=== PATIENT | male | born 1945 | race Two or more races ===

== ENCOUNTER 2018-09-06 04:23 | Inpatient (IN) | payer MEDICARE, OTHER ==
[2018-09-06] VITALS (53 sets, daily range): BP systolic 71–159; BP diastolic 35–106
[~2018-09-06] VITALS: Ht 175.3 cm; Wt 78.9 kg
[2018-09-06] MEDS ORDERED: NALOXONE HCL 0.4 MG/ML AMPUL IV ONE (04:30)
[2018-09-06] MEDS ORDERED: NALOXONE PREFILLED SYRINGE 2 MG/2 ML SYRINGE ONE ×2 (04:30→04:35)
--- NOTE | 2018-09-06 04:33 | NUR ---
PT BIBRA. IN UNRESPONSIVE STATUS. SAT 70-75 ON RA. MONITOR APPLIED. MD AT BEDSIDE.
--- NOTE | 2018-09-06 04:39 | NUR ---
PT PREPPED FOR INTUBATION.
[2018-09-06 04:43] LABS: BASOPHILS % (AUTO) 0.3 % (0.0-2.0); EOSINOPHILS % (AUTO) 0.2 % (0.0-6.0); HEMATOCRIT 44 % (39-51); LYMPHOCYTES # (AUTO) 1.1 /CMM (0.8-4.8); MEAN CORPUSCULAR HGB CONC 32 g/dl (31.0-36.0); MEAN CORPUSCULAR VOLUME 101 fL (80-96); MONOCYTES # (AUTO) 1.3 /CMM (0.1-1.30); MONOCYTES % (AUTO) 8.4 % (2.0-12.0); NEUTROPHILS # (AUTO) 13.4 /CMM (1.8-8.9); NEUTROPHILS % (AUTO) 84.1 % (43.0-81.0); PLATELET COUNT (AUTO) 221 /CMM (150-450); RED BLOOD CELL COUNT(AUTO) 4.37 MIL/uL (4.5-6.0); WHITE BLOOD COUNT (AUTO) 15.9 K/uL (4.3-11.0)
--- NOTE | 2018-09-06 04:54 | NUR ---
Note jenny in EDM - 09/06/18 at 0456 by PORFIRIO PT BIBRA. IN UNRESPONSIVE STATUS. SAT 70-75 ON RA. MONITOR APPLIED. MD AT BEDSIDE.
--- NOTE | 2018-09-06 04:55 | NUR ---
RT CALLED TO PT BEDSIDE STAT FOR INTUBATION. RT ARRIVED AT PT BEDSIDE WITH PT ON N/C AND NRB ON 15LPM. AMBU BAG MASK AT BEDSIDE. PT INTUBATED WITH 8.0ETT@25CM VIA GLIDESCOPE. POSITIVE COLOR CHANGE ON CO2 DETECTOR, MIST IN THE TUBE, BREATH SOUNDS EQUAL BILATERAL. ETT SECURED VIA ANCHORFAST. PT PLACED ON VENT AC 14 500 100%. NO PEEP DUE TO DECREASED B/P AT THIS TIME. Addendum: 09/06/18 at 0501 by TOD LUNA RT Amended: Links added.
[2018-09-06 05:02] LABS: SERUM AMMONIA 36 umol/L (11-32)
[2018-09-06 05:10] LABS: ALANINE AMINOTRANSFERASE 27 U/L (12-78); ALBUMIN 3.1 g/dL (3.4-5.0); ALKALINE PHOSPHATASE 88 U/L (46-116); ASPARTATE AMINOTRANSFERASE 24 U/L (15-37); BILIRUBIN,DIRECT 0.2 mg/dL (0.0-0.2); BILIRUBIN,TOTAL 0.6 mg/dL (0.2-1.0); CALCIUM, SERUM 9.2 mg/dL (8.5-10.1); CARBON DIOXIDE 33 mmol/L (21-32); CHLORIDE 104 mmol/L (98-107); CREATININE 2.1 mg/dL (0.6-1.3); GLUCOSE 233 mg/dL (74-106); SODIUM SERUM 141 mmol/L (136-145); TOTAL PROTEIN, SERUM 8.2 g/dL (6.4-8.2); UREA NITROGEN, BLOOD 38 mg/dL (7-18)
[2018-09-06 05:19] LABS: POTASSIUM 6.8 mmol/L (3.5-5.1)
[2018-09-06] MEDS ORDERED: INSULIN REGULAR, HUMAN 100 UNIT/ML 10 ML VIAL ONE (05:25)
[2018-09-06] MEDS ORDERED: Calcium Gluconate 0.465 MEQ/ML VIAL IV ONE (05:25)
[2018-09-06] MEDS ORDERED: DEXTROSE 50%-WATER 50 ML DISP.SYRIN ONE (05:27)
[2018-09-06] MEDS ORDERED: ALBUTEROL FS 2.5 MG/3 ML VIAL.NEB ONE (05:29)
[2018-09-06] MEDS ORDERED: ALBUTEROL FS 2.5 MG/0.5 ML VIAL.NEB NEB ONE ×2 (05:30)
[2018-09-06] MEDS ORDERED: DEXTROSE 50%-WATER 50 ML DISP.SYRIN IVP ONE (05:30)
[2018-09-06] MEDS ORDERED: Calcium Gluconate 1GM/10ML 4.65 MEQ in IV NS 0.9% 50 ML IV ONE (05:30)
[2018-09-06] MEDS ORDERED: VANCOMYCIN 1 GM in IV D5W 250 ML IV ONE (05:30)
[2018-09-06] MEDS ORDERED: INSULIN REGULAR, HUMAN 100 UNIT/ML 10 ML VIAL IV ONE (05:30)
[2018-09-06] MEDS ORDERED: IV NS 0.9% 1,000 ML BAG IV ONE (05:30)
[2018-09-06] MEDS ORDERED: PIPERACILLIN /TAZOBACTAM 3.375 G in IV D5W 50 ML IV ONE (05:30)
[2018-09-06] MEDS ORDERED: HYDR-4384 PO (05:32)
[2018-09-06] MEDS ORDERED: ASPI-1152 PO (05:32)
[2018-09-06] MEDS ORDERED: IPRA0.2S49 IH (05:32)
[2018-09-06] MEDS ORDERED: TAMS-12 PO (05:32)
[2018-09-06] MEDS ORDERED: NIFE30TA2 PO (05:32)
[2018-09-06] MEDS ORDERED: CARV3.12 PO (05:32)
[2018-09-06] MEDS ORDERED: ENAL20TA70 PO (05:32)
[2018-09-06] MEDS ORDERED: BUDE0.5A IH (05:32)
[2018-09-06] MEDS ORDERED: ATOR80TA PO (05:32)
[2018-09-06] MEDS ORDERED: LEVA1.2528 IH (05:32)
[2018-09-06] MEDS ORDERED: OMEG1CAP PO (05:32)
[2018-09-06] MEDS ORDERED: OLAN10TA3 PO (05:32)
[2018-09-06] MEDS ORDERED: DOCU-141 PO (05:32)
[2018-09-06] MEDS ORDERED: ALBU2.5V13 IH (05:32)
[2018-09-06] MEDS ORDERED: FINA5TAB3 PO (05:32)
[2018-09-06 05:33] LABS: APPEARANCE,URINE Clear (CLEAR); BILIRUBIN,URINE SMALL (NEGATIVE); BLOOD, URINE Negative Ery/uL (NEGATIVE); COLOR,URINE Yellow (YELLOW); KETONES,URINE Trace (NEGATIVE); LEUKOCYTE ESTERASE ,URINE Negative (NEGATIVE); NITRITE, URINE Negative (NEGATIVE); PROTEIN,URINE 100 mg/dl (NEGATIVE); UGLUCOSE Negative (NEGATIVE)
[2018-09-06] MEDS ORDERED: PIPERACILLIN /TAZOBACTAM 3.375 G VIAL IV ONE (05:37)
[2018-09-06] MEDS ORDERED: VANCOMYCIN 1 GM VIAL ONE (05:37)
--- NOTE | 2018-09-06 05:41 | NUR ---
CALLED [facility] TO HAVE CT HEAD READ 1ST CALL
--- NOTE | 2018-09-06 05:56 | NUR ---
PT KENDAL. AWARE
[2018-09-06 05:57] LABS: ABG BASE EXCESS 4.8 mmol/L; ABG OXYGEN SATURATION 99.1 % (92.0-98.5); ABG PCO2 73.4 mmHg (35.0-45.0); ABG PH 7.284 (7.350-7.450); ABG PO2 217.2 mmHg (75.0-100.0); AaDO2 129.9 mmHg; COHb 1.6 % (0.5-1.5); MetHb 0.6 % (0.0-1.5); O2Hb 96.9 % (94.0-97.0); PEEP,BG 0 cm H2O; SITE, ABG Right Brachial; VENT MODE, BG AC 14 500 60%; VT, ABG 500 mL
[2018-09-06] MEDS ORDERED: ALBUTEROL FS 2.5 MG/0.5 ML VIAL.NEB ONE (06:01)
--- NOTE | 2018-09-06 06:03 | NUR ---
PT PLACED ON ALBUTEROL 5MG PER MD VERBAL ORDER Addendum: 09/06/18 at 2309 by TOD LUNA RT Amended: Links added.
[2018-09-06 06:12] LABS: SQUAMOUS EPITHELIAL CELL,UR None Seen /HPF (None Seen); URINE AMORPHOUS URATE Few /HPF (None Seen); WBC,URINE 0-2 /HPF (0-3)
[2018-09-06 06:13] LABS: BACTERIA,URINE Few /HPF (None Seen)
[2018-09-06] MEDS ORDERED: BISA10SU8 RC (07:17)
[2018-09-06] MEDS ORDERED: IPRA0.2S9 IH (07:17)
[2018-09-06] MEDS ORDERED: ACET-868 PO (07:17)
[2018-09-06] MEDS ORDERED: MAGN400O6 PO (07:17)
[2018-09-06] MEDS ORDERED: NA P133E RC (07:17)
--- NOTE | 2018-09-06 07:19 | NUR ---
RECEIVED REPORT FROM HIREN OLMOS FOR ROSENDA, PT IS AAOX0, ON MECH VENT VIA ET TUBE, IV LINE ON BOTH HANDS G20, KEPT RESTED AND COMFORTABLE, WILL CONTINUE TO MONITOR.
--- NOTE | 2018-09-06 07:26 | NUR ---
GIOVANNI SPRING COILING MACHINE SETTER, DR. PAM GUILLEN ON-CALL. AWAITNG FOR CALL BACK. PRIMARY NURSE AWARE.
--- NOTE | 2018-09-06 07:29 | NUR ---
RT AT BEDSIDE FOR VENT SETTINGS.
[2018-09-06] MEDS ORDERED: ACETAMINOPHEN 650 MG/SUPP.RECT RC PRN (07:30)
[2018-09-06] MEDS ORDERED: Z GUARD REMEDY 2 OZ OINT TP PRN (07:30)
[2018-09-06] MEDS ORDERED: MORPHINE SULFATE INJ 2 MG/ML DISP.SYRIN IV PRN (07:30)
[2018-09-06] MEDS ORDERED: ONDANSETRON HCL/PF 4 MG/2 ML VIAL IVP PRN (07:30)
[2018-09-06] MEDS ORDERED: ALBUTEROL FS 2.5 MG/3 ML VIAL.NEB NEB PRN ×2 (07:30→13:30)
--- NOTE | 2018-09-06 07:30 | NUR ---
RT NOTE RECEIVED PT MECHANICALLY VENTILATED VIA 8.0 ETT 25 CM AT LIP. CUFF INFLATED. ETT SECURE. VENTILATOR SETTINGS FOLLOW AC 16 500 40% 0. ALARMS SET PER PROTOCOL AND AUDIBLE. VENT PLUGGED IN TO RED OUTLET. AMBU BAG AT BED SIDE. NO DISTRESS NOTED AT MOMENT. Addendum: 09/06/18 at 0732 by VICTORINO CASTRO RT Amended: Links added.
[2018-09-06] MEDS ORDERED: PROPOFOL 100 ML ONE (07:40)
--- NOTE | 2018-09-06 07:49 | NUR ---
PROPOFOL 1000MG/100ML STARTED VERBAL ORDERED BY DR. CASTRO, STARTED AT 12MCG TITRATE TO EFFECT.
[2018-09-06] MEDS ORDERED: PROPOFOL 100 ML IV ONE (08:10)
[2018-09-06 08:15] LABS: ABG BASE EXCESS 1.2 mmol/L; ABG OXYGEN SATURATION 93.4 % (92.0-98.5); ABG PCO2 73.5 mmHg (35.0-45.0); ABG PO2 72.6 mmHg (75.0-100.0); AaDO2 128.1 mmHg; COHb 1.2 % (0.5-1.5); MetHb 0.4 % (0.0-1.5); O2Hb 91.9 % (94.0-97.0); PEEP,BG 0 cm H2O; SITE, ABG Right Radial; VENT MODE, BG AC 16 500 40% +0; VT, ABG 500 mL
--- NOTE | 2018-09-06 08:15 | NUR ---
REPORT GIVEN TO HIREN GOMEZ FOR ROSENDA, WITH ONGOING PROPOFOL DRIP TITRATE TO EFFECT.
[2018-09-06] MEDS ORDERED: FEE PK DOSING 1 MIN EA MC ONE (08:26)
[2018-09-06 08:33] LABS: BASOPHILS % (AUTO) 0.1 % (0.0-2.0); HEMATOCRIT 42 % (39-51); HEMOGLOBIN 13.5 g/dL (13.5-17.5); LYMPHOCYTES # (AUTO) 0.8 /CMM (0.8-4.8); LYMPHOCYTES % (AUTO) 5.7 % (20.0-44.0); MEAN CORPUSCULAR HGB CONC 32 g/dl (31.0-36.0); MEAN CORPUSCULAR VOLUME 100 fL (80-96); MONOCYTES # (AUTO) 1.1 /CMM (0.1-1.30); MONOCYTES % (AUTO) 7.9 % (2.0-12.0); NEUTROPHILS # (AUTO) 11.6 /CMM (1.8-8.9); NEUTROPHILS % (AUTO) 86.3 % (43.0-81.0); PLATELET COUNT (AUTO) 167 /CMM (150-450); RED BLOOD CELL COUNT(AUTO) 4.24 MIL/uL (4.5-6.0); WHITE BLOOD COUNT (AUTO) 13.4 K/uL (4.3-11.0)
--- NOTE | 2018-09-06 08:34 | NUR ---
ADMISSION BIN FILLER NOTE RCVD PT FROM ER INTUBATED ETT 8.0 25 AT LIP TOLERATING WELL, SEDATED ON DIPRIVAN, OBSERVED MOVING RIGHT ARM REACHING FOR FACE. SR ON MONITOR WITH OCCASIONAL PACs, LEFT NG TUBE CLAMPED, PLACEMENT VERIFIED BY AUSCULTATION/ASPIRATION OF GASTRIC CONTENTS, DECKER TO GRAVITY DRAINING ADRIANA, CLOUDY URINE. BILATERAL HANDS #20 C/D/I/PATENT , NO S/O INFILTRATION/PHLEBITIS OBSERVED UPON FLUSHING. WILL CONTINUE TO MONITOR PT FOR SAFETY AND COMFORT. BED IN LOW AND LOCKED POSITION, CALL LIGHT WITHIN REACH, HEAD OF BED ELEVATED.
[2018-09-06 08:40] LABS: CALCIUM, SERUM 8.9 mg/dL (8.5-10.1); CARBON DIOXIDE 30 mmol/L (21-32); CHLORIDE 105 mmol/L (98-107); GLUCOSE 299 mg/dL (74-106); POTASSIUM 4.8 mmol/L (3.5-5.1); SODIUM SERUM 141 mmol/L (136-145); UREA NITROGEN, BLOOD 38 mg/dL (7-18)
[2018-09-06 08:44] LABS: CHOLESTEROL 101 mg/dL (<200); HDL CHOLESTEROL 48 mg/dL (40-60); LDL 51 mg/dL (0-99); TRIGLYCERIDES 66 mg/dL (30-150)
[2018-09-06 08:53] LABS: ALANINE AMINOTRANSFERASE 23 U/L (12-78); ALBUMIN 2.7 g/dL (3.4-5.0); ALKALINE PHOSPHATASE 78 U/L (46-116); ASPARTATE AMINOTRANSFERASE 19 U/L (15-37); B-TYPE NATRIURETIC PEPTIDE 910 PG/ML (0-125); BILIRUBIN,TOTAL 0.9 mg/dL (0.2-1.0); MAGNESIUM 2.6 mg/dL (1.8-2.4); PHOSPHORUS 2.6 mg/dL (2.5-4.9); TOTAL PROTEIN, SERUM 7.2 g/dL (6.4-8.2)
[2018-09-06] MEDS: IV D5/ 0.9% NACL 1,000 ML IV PRN ×2 (09:45→23:40)
[2018-09-06] MEDS: PANTOPRAZOLE 40 MG VIAL IV SCH (09:45)
[2018-09-06 10:20] LABS: ABG BASE EXCESS 4.1 mmol/L; ABG OXYGEN SATURATION 93.6 % (92.0-98.5); ABG PCO2 48.8 mmHg (35.0-45.0); ABG PH 7.403 (7.350-7.450); ABG PO2 62.9 mmHg (75.0-100.0); AaDO2 166.2 mmHg; COHb 1.1 % (0.5-1.5); MetHb 0.4 % (0.0-1.5); O2Hb 92.2 % (94.0-97.0); PEEP,BG 0 cm H2O; SITE, ABG Right Radial; VENT MODE, BG AC 18 600 40% +0; VT, ABG 600 mL
[2018-09-06] MEDS ORDERED: ETOMIDATE 2 MG/ML VIAL IV ONE (11:00)
[2018-09-06] MEDS ORDERED: ROCURONIUM BROMIDE 50 MG/5 ML IV ONE (11:00)
[2018-09-06] MEDS ORDERED: IV NS 0.9% 1,000 ML IV ONE (11:00)
[2018-09-06] MEDS: PIPERACILLIN /TAZOBACTAM 2.25 G in IV D5W 50 ML IV SCH ×3 (13:26→23:20)
[2018-09-06] MEDS: PROPOFOL 100 ML IV PRN ×2 (13:27→18:19)
[2018-09-06] MEDS ORDERED: DEXTROSE 50%-WATER 50 ML DISP.SYRIN IV PRN (13:30)
--- NOTE | 2018-09-06 13:37 | NUR ---
KIER OPERATOR NOTE PT BECAME AGITATED, ATTEMPTING TO SIT UP AND PULL ETT WITH RESTRAINED HAND. RN AT BEDSIDE MONITORING PT, SEDATION ADJUSTED, SBP MONITORED AND MAINTAINED WNL. DR. DOMINGUEZ AWARE. BP STABLE AFTER 1L NS BOLUS.
[2018-09-06] MEDS: BLOOD SUGAR DIAGNOSTIC 1 EACH STRIP IN SCH ×3 (13:54→21:01)
--- NOTE | 2018-09-06 17:56 | NUR ---
CUSTOMER ACCOUNT REPRESENTATIVE NOTE PT REMAINS STABLE, BILATERAL SOFT WRIST RESTRAINTS IN PLACE, CIRCULATION CHECKS DONE. SHOWING NO S/O DISTRESS, INTUBATED, SEDATED ON PROPOFOL, SR ON MONITOR TOLERATING ORDERED VENT SETTINGS, DECKER TO GRAVITY WITH GOOD URINARY OUTPUT, NG-TUBE CLAMPED, PLACEMENT VERIFIED BY AUSCULTATION/ASPIRATION OF GASTRIC CONTENTS. BILATERAL HANDS IV SITES C/D/I/PATENT, NO S/O INFILTRATION/PHLEBITIS OBSERVED IVF INFUSING ORDERED. PT'S CARE WILL BE ENDORSED TO PHOTO LAB SPECIALIST RN FOR CONTINUITY OF CARE. BED IN LOW AND LOCKED POSITION. CALL LIGHT WITHIN REACH, HEAD OF BED ELEVATED.
--- NOTE | 2018-09-06 19:20 | NUR ---
RN NOTE RECEIVED PATIENT IN BED INTUBATED ETT 8.0 25 AT LIP TOLERATING WELL, SEDATED ON DIPRIVAN AT 28ML/HR , NOTED PATIENT COUGHING AT TIMES, AND REPETITIVE MOVEMENTS OF BODY AT TIMES, SR ON MONITOR WITH OCCASIONAL PACs, AND BBB, RIGHT NG TUBE CLAMPED, DECKER TO GRAVITY DRAINING YELLOW URINE, ON BILATERAL SOFT WRIST RESTRAINS IN PLACE, CIRCULATION CHECK AND NO ABNORMALITY NOTED, AND NO ABNORMALITY NOTED AT SITE, RIGHT AND LEFT HAND IV SITES PATENT AND INTACT, #20, NO S/S OF INFILTRATION NOTED, WILL CONTINUE TO MONITOR PATIENT, ALL SAFETY MEASURES IN PLACED, BED LOCKED AND LOW POSITION, CALL LIGHT WITHIN REACH, HEAD OF BED ELEVATED AT ALL TIMES, WILL CONTINUE TO MONITOR PATIENT CLOSELY.
--- NOTE | 2018-09-06 20:08 | NUR ---
RT NOTE PEEP OF [address] PATRICIO. CHANGES MADE. Addendum: 09/06/18 at 2009 by NUZHAT CHE RT Amended: Links added.
--- NOTE | 2018-09-06 20:16 | NUR ---
RT NOTE PT RECEIVED ON [facility] VENT ON THE FOLLOWING SETTINGS: AC 18, 600, 50%, +0. NO RESP DISTRESS NOTED AT THIS TIME. AMBU BAG IS AT BEDSIDE. VENT IS PLUGGED INTO RED OUTLET. ALARMS ARE ON AND AUDIBLE. PT SX'D. SMALL THIN YELLOW SECRETIONS NOTED. NO BREATHING TX ORDERED AT THIS TIME. WILL CONT TO MONITOR PT THROUGHOUT THE NIGHT. Addendum: 09/06/18 at 2018 by NUZHAT CHE RT Amended: Links added.
--- NOTE | 2018-09-06 20:20 | NUR ---
RN NOTES, PATIENT ASSESSED BY GEOTHERMAL PLANT MANAGER SHENG AT TH IS TIME, WITH NEW NEW CHANGES TO ADD PEEP 5, PATIENT TOLERATED SETTINGS WELL, NO SOB/ACUTE DISTRESS NOTED, WILL CONTINUE TO MONITOR PATIENT CLOSELY.
[2018-09-06] MEDS: HEPARIN SODIUM, PORCINE 5000 UNITS/1 ML VIAL SQ SCH (21:01)
[2018-09-06] MEDS: INSULIN REGULAR, HUMAN 100 UNIT/ML 3 ML VIAL SQ PRN (21:02)
--- NOTE | 2018-09-06 22:30 | NUR ---
RN NOTES, MIDLINE INSERTED IN RIGHT UPPER ARM, WITH GOOD BLOOD RETURN RETURN, PATIENT TOLERATED PROCEDURE WELL, NO FACIAL GRIMACING OR DISCOMFORT NOTED, WILL CONTINUE TO MONITOR CLOSELY.
[2018-09-07] VITALS (42 sets, daily range): BP systolic 97–138; BP diastolic 52–106
[2018-09-07] MEDS: BLOOD SUGAR DIAGNOSTIC 1 EACH STRIP IN SCH ×6 (00:05→23:46)
[2018-09-07] MEDS: PROPOFOL 100 ML IV PRN ×4 (00:40→20:54)
[2018-09-07 04:50] LABS: BASOPHILS % (AUTO) 0.2 % (0.0-2.0); EOSINOPHILS % (AUTO) 0.4 % (0.0-6.0); HEMATOCRIT 42 % (39-51); HEMOGLOBIN 13.4 g/dL (13.5-17.5); LYMPHOCYTES # (AUTO) 0.9 /CMM (0.8-4.8); LYMPHOCYTES % (AUTO) 7.9 % (20.0-44.0); MEAN CORPUSCULAR HGB CONC 32 g/dl (31.0-36.0); MEAN CORPUSCULAR VOLUME 99 fL (80-96); MONOCYTES % (AUTO) 8.9 % (2.0-12.0); NEUTROPHILS # (AUTO) 9.7 /CMM (1.8-8.9); NEUTROPHILS % (AUTO) 82.6 % (43.0-81.0); PLATELET COUNT (AUTO) 197 /CMM (150-450); RED BLOOD CELL COUNT(AUTO) 4.19 MIL/uL (4.5-6.0); WHITE BLOOD COUNT (AUTO) 11.8 K/uL (4.3-11.0)
[2018-09-07] MEDS: INSULIN REGULAR, HUMAN 100 UNIT/ML 3 ML VIAL SQ PRN ×2 (05:18→10:06)
[2018-09-07 05:29] LABS: CALCIUM, SERUM 8.2 mg/dL (8.5-10.1); CARBON DIOXIDE 32 mmol/L (21-32); CHLORIDE 112 mmol/L (98-107); CREATININE 1.6 mg/dL (0.6-1.3); GLUCOSE 135 mg/dL (74-106); MAGNESIUM 2.2 mg/dL (1.8-2.4); PHOSPHORUS 2.2 mg/dL (2.5-4.9); POTASSIUM 4.6 mmol/L (3.5-5.1); SODIUM SERUM 147 mmol/L (136-145); UREA NITROGEN, BLOOD 28 mg/dL (7-18)
[2018-09-07] MEDS: PIPERACILLIN /TAZOBACTAM 2.25 G in IV D5W 50 ML IV SCH ×4 (05:44→23:35)
[2018-09-07] MEDS ORDERED: VANCOMYCIN 0.75 GM in IV D5W 250 ML IV SCH (06:00)
--- NOTE | 2018-09-07 07:00 | NUR ---
RN NOTE PATIENT IN BED CONTINUE INTUBATED ON ETT SEDATED ON DIPRIVAN AT 28ML/HR , SR ON MONITOR WITH OCCASIONAL PACs, AND BBB, HIGH 50S-60S AT THIS TIME, RIGHT NG TUBE CLAMPED, CONT ON BILATERAL SOFT WRIST RESTRAINS IN PLACE, FREQUENT CIRCULATION CHECK AND NO ABNORMALITY NOTED, MEGAN MIDLINE AND RIGHT AND LEFT HAND IV SITES PATENT AND INTACT, #20, IVF INFUSING WELL AND PATIENT TOLERATED WELL, NO S/S OF INFILTRATION NOTED, DECKER TO GRAVITY DRAINING YELLOW URINE WITH GOOD URINE OUTPUT DURING THE NIGHT, ALL SAFETY MEASURES IN PLACED, DRY AND CLEAN, SUCTIONING NEEDED FOR REMOVAL OF SECRETIONS, REPOSITIONING PROVIDED Q2HRSN AND PRN, BED LOCKED AND LOW POSITION, CALL LIGHT WITHIN REACH, HEAD OF BED ELEVATED AT ALL TIMES, WILL ENDORSE CONTINUITY OF CARE TO ONCOMING NURSE.
--- NOTE | 2018-09-07 07:15 | NUR ---
ATHLETICS TEACHER OPENING NOTE RECEIVED REPORT FROM PM NURSE.PATIENT IN BED, INTUBATED ON ETT 8 LIP LEVEL 25.SEDATED WITH DIPRIVAN AT 28MCG/KG/HR.ON TELE MONITOR SR WITH OCCASIONAL PACs.HR 50S-60S AT THIS TIME.RIGHT NARE NG TUBE CLAMPED.ON BILATERAL SOFT WRIST RESTRAINS .PATIENT MILDLY AGITATED. MEGAN MIDLINE AND RIGHT AND LEFT HAND IV SITES PATENT AND INTACT, #20, IVF INFUSING WELL AND PATIENT TOLERATED WELL, NO S/S OF INFILTRATION NOTED, DECKER TO GRAVITY DRAINING YELLOW URINE. SAFETY MEASURES IN PLACE. BED LOCKED AND LOW POSITION, CALL LIGHT WITHIN REACH, HEAD OF BED ELEVATED .SRX3.WILL CONTINUE TO MONITOR.
--- NOTE | 2018-09-07 08:30 | NUR ---
THIRD STEEL POURER NOTE SEEN BY ,UPDATED ABOUT PATIENT CONDITION.GOT ORDER FOR SEDATION VACATION.PATIENT STARTED ON SEDATION VACATION.WILL CONTINUE TO MONITOR.
[2018-09-07 08:44] LABS: ABG BASE EXCESS 4.8 mmol/L; ABG OXYGEN SATURATION 97.6 % (92.0-98.5); ABG PCO2 33.7 mmHg (35.0-45.0); ABG PH 7.527 (7.350-7.450); ABG PO2 93.9 mmHg (75.0-100.0); AaDO2 224.7 mmHg; COHb 0.4 % (0.5-1.5); MetHb 0.6 % (0.0-1.5); O2Hb 96.6 % (94.0-97.0); PEEP,BG 5 cm H2O; SITE, ABG Right Brachial; VT, ABG 600 mL
[2018-09-07] MEDS: PANTOPRAZOLE 40 MG VIAL IV SCH (10:00)
[2018-09-07] MEDS: HEPARIN SODIUM, PORCINE 5000 UNITS/1 ML VIAL SQ SCH ×2 (10:01→20:30)
[2018-09-07] MEDS: LORAZEPAM INJ 2 MG/ML VIAL IV PRN ×2 (10:16→20:47)
--- NOTE | 2018-09-07 10:40 | NUR ---
JUNIOR PROJECT MANAGER NOTE SEEN BY ,UPDATED ABOUT PATIENT CONDITION.GOT EW ORDERS.PATIENT IS NOT TOLERATING SEDATION VACATION.PRN ATIVAN GIVEN.STILL PATIENT AGITATED ELEVATED HR.TRYING TO PULL OUT TUBES WITH RESTRAINT.PATIENT BACK ON PROPOFOL.WILL CONTINUE TO MONITOR.
[2018-09-07] MEDS: IV D5/ 0.9% NACL 1,000 ML IV PRN ×2 (11:03→23:49)
[2018-09-07] MEDS ORDERED: POTASSIUM PHOSPHATE MM 7.5 MMOL in IV D5W 100 ML IV SCH (12:00)
[2018-09-07] MEDS: OLANZAPINE 10 MG TABLET PO SCH (16:20)
--- NOTE | 2018-09-07 16:42 | NUR ---
LOADER OPERATOR SUPERVISOR NOTE ZYPREXA NOT ADMINISTERED .PATIENT ON SEDATION.
[2018-09-07] MEDS: CARVEDILOL 3.125 MG TABLET PO SCH (17:00)
[2018-09-07] MEDS: ALBUTEROL FS 2.5 MG/3 ML VIAL.NEB NEB SCH ×3 (17:11→22:56)
[2018-09-07] MEDS ORDERED: DEXTROSE 50%-WATER 50 ML DISP.SYRIN IV PRN (18:30)
--- NOTE | 2018-09-07 18:59 | NUR ---
DRAWER WAXER CLOSING NOTE PATIENT IN BED, INTUBATED ON ETT 8 LIP LEVEL 25.SEDATED WITH DIPRIVAN AT 25MCG/KG/HR.ON TELE MONITOR SR WITH OCCASIONAL IRREGULAR PACs.HR 50S-60S AT THIS TIME.RIGHT NARE NG TUBE CLAMPED.ON BILATERAL SOFT WRIST RESTRAINS .PATIENT COMFORTABLE. MEGAN MIDLINE AND RIGHT AND LEFT HAND IV SITES PATENT AND INTACT, #20, IVF INFUSING WELL AND PATIENT TOLERATED WELL, NO S/S OF INFILTRATION NOTED, DECKER TO GRAVITY DRAINING YELLOW URINE. SAFETY MEASURES IN PLACE. BED LOCKED AND LOW POSITION, CALL LIGHT WITHIN REACH, HEAD OF BED ELEVATED .SRX3.ENDORSED TO PM NURSE FOR ROSENDA.
--- NOTE | 2018-09-07 20:00 | NUR ---
ICU/RN-RECEIVED PT. FROM DAYSHIFT HIREN VASQUEZ. PT. POST MILDLY SEDATED , EASILY GETS AGITATED W/ STIMULATION, ON DIPRIVAN DRIP AT 25MCG/KG/MIN. WILL TITRATE PER PROTOCOL TO KEEP SAS-3. W/ BILATERAL SOFT WRIST RESTRAINTS ON PER PROTOCOL.ON THE VENT PER ETT, ON AC MODE, SATS.-97%. EKG SR W/ OCCASIONAL PACS, W/ HR-58/MIN. BP-127/75. PT. IS A FULL CODE. NO S/S OF DISTRESS OR PAIN. WILL CONTINUE TO MONITOR CLOSELY AND WILL REFER NEEDED.
--- NOTE | 2018-09-07 20:47 | NUR ---
ICU/RN- PT. AGITATED, SITTING UP ON BED, ON DIPRIVAN DRIP AT 35 MCG/KG/MIN. WILL INCREASE TO 40 MCG/KG/MIN PER PROTOCOL. ATIVAN 0.5 MG SIVP GIVEN, WILL REASSESS FOR PRN EFFECTIVENESS.
[2018-09-08] VITALS (46 sets, daily range): BP systolic 96–160; BP diastolic 52–129
[2018-09-08] MEDS ORDERED: VANCOMYCIN 1 GM in IV D5W 250 ML IV SCH ×2
[2018-09-08] MEDS: PROPOFOL 100 ML IV PRN ×3 (01:07→05:45)
[2018-09-08] MEDS ORDERED: ONDANSETRON 4 MG TAB.RAPDIS ONE (01:34)
[2018-09-08] MEDS ORDERED: HYDROCODONE/APAP 5/325MG 1 EACH TABLET ONE (01:34)
[2018-09-08] MEDS ORDERED: CYCLOBENZAPRINE 10 MG TABLET ONE (01:34)
[2018-09-08] MEDS: ALBUTEROL FS 2.5 MG/3 ML VIAL.NEB NEB SCH ×6 (03:28→23:16)
[2018-09-08 04:37] LABS: BASOPHILS % (AUTO) 0.3 % (0.0-2.0); EOSINOPHILS % (AUTO) 2.5 % (0.0-6.0); HEMATOCRIT 38 % (39-51); HEMOGLOBIN 12.6 g/dL (13.5-17.5); LYMPHOCYTES # (AUTO) 0.8 /CMM (0.8-4.8); LYMPHOCYTES % (AUTO) 9.2 % (20.0-44.0); MEAN CORPUSCULAR HGB CONC 34 g/dl (31.0-36.0); MEAN CORPUSCULAR VOLUME 98 fL (80-96); MONOCYTES # (AUTO) 0.9 /CMM (0.1-1.30); MONOCYTES % (AUTO) 9.7 % (2.0-12.0); NEUTROPHILS # (AUTO) 7.1 /CMM (1.8-8.9); NEUTROPHILS % (AUTO) 78.3 % (43.0-81.0); PLATELET COUNT (AUTO) 176 /CMM (150-450); RED BLOOD CELL COUNT(AUTO) 3.84 MIL/uL (4.5-6.0); WHITE BLOOD COUNT (AUTO) 9.1 K/uL (4.3-11.0)
[2018-09-08 05:09] LABS: ALANINE AMINOTRANSFERASE 19 U/L (12-78); ALBUMIN 1.9 g/dL (3.4-5.0); ALKALINE PHOSPHATASE 60 U/L (46-116); ASPARTATE AMINOTRANSFERASE 21 U/L (15-37); BILIRUBIN,TOTAL 0.5 mg/dL (0.2-1.0); CALCIUM, SERUM 8.1 mg/dL (8.5-10.1); CARBON DIOXIDE 33 mmol/L (21-32); CHLORIDE 114 mmol/L (98-107); CREATININE 1.3 mg/dL (0.6-1.3); GLUCOSE 120 mg/dL (74-106); MAGNESIUM 2.2 mg/dL (1.8-2.4); PHOSPHORUS 2.7 mg/dL (2.5-4.9); POTASSIUM 3.8 mmol/L (3.5-5.1); SODIUM SERUM 151 mmol/L (136-145); TOTAL PROTEIN, SERUM 5.8 g/dL (6.4-8.2); UREA NITROGEN, BLOOD 22 mg/dL (7-18)
[2018-09-08] MEDS: BLOOD SUGAR DIAGNOSTIC 1 EACH STRIP IN SCH ×3 (05:46→17:02)
[2018-09-08] MEDS: PIPERACILLIN /TAZOBACTAM 2.25 G in IV D5W 50 ML IV SCH ×3 (05:48→17:02)
--- NOTE | 2018-09-08 06:17 | NUR ---
ICU/RN-REMAINS SEDATED ON DIPRIVAN DRIP AT 35MCG/KG/MIN, W/ IL. SOFT WRIST RESTRAINTS TO PREVENT SELF EXTUBATION DUE TO PT. OFF AND ON AGITATION. REMAINS ON THE VENT ,ON AC MODE. FOR WEANING TRIALS TODAY. NO S/S OF DISTRESS OR PAIN.
--- NOTE | 2018-09-08 07:00 | NUR ---
RN NOTES RECEIVED PT ON BED, INTUBATED, SEDATED, ON DPROVAN AT 35MCG/KG/MIN, TOLERATING CURRENT VENT SETTING WELL, W/ BILATERAL SOFT WRIST RESTRAINTS ON PER PROTOCOL AND FOR PT SAFETY, ON TELE SB WITH PAC'S , DECKER DRINING TO GRAVITY, R NARE NGT CLAMPED , D5NS AT 75CC/HR RUNNING VIA R UPPER ARM MIDLINE , SITE , CLEAN ,DRY AND INTACT, NO S/S OF DISTRESS OR PAIN. SR UP x3, CALL LIGHT WITHIN EASY REACH, BED LOCKED AND IN LOWEST POSITION , WILL CONTINUE TO MONITOR CLOSELY .
--- NOTE | 2018-09-08 08:00 | NUR ---
RN NOTES PT OFF PROPOFOL AT THIS TIME , ALERT / RESTLESS ,STILL INTUBATED , O2 SAT 96%, HR IN 70'S , CONTINUE TO MONITOR FOR EXTUBATION TRAIL .
--- NOTE | 2018-09-08 08:00 | NUR ---
RT RECEIVED PT ORALLY INTUBATED WITH 8.0 ETT MARKED @ 25 CM LIP. NUCLEAR SUPERVISING OPERATOR DONE AND TUBE IS SECURED. VENT ALARMS CHECKED AND AUDIBLE. VENT PLUGGED IN RED OUTLET. AMBU BAG NOTED HOB. B/S BRIAN SX W/ MOD THK PALE YELLOW SECRETIONS. NO SOB OR RESP DISTRESS NOTED, WILL CONTINUE TO MONITOR T/O SHIFT.
--- NOTE | 2018-09-08 08:18 | NUR ---
RT PLACED PT ON SIMV 4 PS 15 PER MD ORDER. WILL OBTAIN ABG 1HR POST VENT CHANGES. RN NOTIFIED.
[2018-09-08] MEDS: CARVEDILOL 3.125 MG TABLET PO SCH ×2 (08:29→16:14)
[2018-09-08] MEDS: OLANZAPINE 10 MG TABLET PO SCH (08:29)
[2018-09-08] MEDS: PANTOPRAZOLE 40 MG VIAL IV SCH (08:29)
[2018-09-08] MEDS: HEPARIN SODIUM, PORCINE 5000 UNITS/1 ML VIAL SQ SCH ×2 (08:31→23:22)
[2018-09-08] MEDS: ASPIRIN EC 81 MG TABLET.DR PO SCH (08:32)
--- NOTE | 2018-09-08 09:30 | NUR ---
RT ABG DONE AND RESULTS RELAYED TO RN AND DR HOU. PER ABG AFTER 2 HRS.
[2018-09-08 09:43] LABS: ABG BASE EXCESS 3.4 mmol/L; ABG OXYGEN SATURATION 94.5 % (92.0-98.5); ABG PCO2 53.4 mmHg (35.0-45.0); ABG PH 7.366 (7.350-7.450); ABG PO2 77.2 mmHg (75.0-100.0); AaDO2 146.6 mmHg; COHb 0.1 % (0.5-1.5); MetHb 0.7 % (0.0-1.5); O2Hb 93.7 % (94.0-97.0); SITE, ABG Right Radial; VENT MODE, BG SIM 4 PS 15
--- NOTE | 2018-09-08 09:45 | NUR ---
RT SEEN BY DR HOU. PT AGITATED, ABG IN 45 MINS. NO SOB OR RESP DISTRESS NOTED.
[2018-09-08] MEDS: IV D5/0.45 NACL 1,000 ML IV PRN (10:11)
--- NOTE | 2018-09-08 10:30 | NUR ---
RT ABG DONE AND RESULTS RELAYED TO DR HOU.
[2018-09-08 10:31] LABS: ABG BASE EXCESS 5.5 mmol/L; ABG OXYGEN SATURATION 93.9 % (92.0-98.5); ABG PCO2 58.8 mmHg (35.0-45.0); ABG PH 7.362 (7.350-7.450); ABG PO2 73.9 mmHg (75.0-100.0); AaDO2 143.7 mmHg; MetHb 0.8 % (0.0-1.5); O2Hb 93.1 % (94.0-97.0); SITE, ABG Right Radial; VENT MODE, BG SIMV 4 PS 15
--- NOTE | 2018-09-08 10:36 | NUR ---
RT PER DR HOU. EXTUBATE PATIENT.
[2018-09-08] MEDS ORDERED: DC PROPOFOL WHEN EXTUBATED XX PRN (10:38)
--- NOTE | 2018-09-08 10:45 | NUR ---
RT PT EXTUBATED PER DR HOU. PT HAS STRONG COUGH. PLACED ON 34L NC. NO RESP DISTRESS NOTED. WILL CONTINUE TO MONITOR T/ SHIFT.
[2018-09-08 12:50] LABS: ABG BASE EXCESS 2.5 mmol/L; ABG OXYGEN SATURATION 91.8 % (92.0-98.5); ABG PCO2 55.6 mmHg (35.0-45.0); ABG PH 7.342 (7.350-7.450); ABG PO2 62.5 mmHg (75.0-100.0); AaDO2 100.6 mmHg; COHb 0.6 % (0.5-1.5); MetHb 0.7 % (0.0-1.5); O2Hb 90.6 % (94.0-97.0); SITE, ABG Right Radial; VENT MODE, BG Nasal Cannula
--- NOTE | 2018-09-08 13:06 | NUR ---
RN NOTES DR HOU NOTIFED REGARDING ABG RESULTS , PT STAYS ON 3L O2 N/C , O2 SAT 96% . CONTINUE TO MONITOR.
--- NOTE | 2018-09-08 16:00 | NUR ---
RN NOTES NGT PULLED OUT BY PATIENT . PATIENT PT IS ABLE TO SWALLOW MEDS WITHOUT ANY DIFFICULTIES , HO MENDEZ REFRIGERATION UNIT REPAIRER NOTIFED, AWAITING FOR SWALLOWING EVAL IN AM .
[2018-09-08] MEDS: OLANZAPINE 5 MG TABLET PO SCH (16:14)
--- NOTE | 2018-09-08 17:00 | NUR ---
RN NOTES O2 SAT IN HIGH 90'S , PT STABLE, NT SUCTIONING DONE PRN , NO RESPIRATORY DISTRESS NOTED, CONTINUE TO MONITOR .
--- NOTE | 2018-09-08 18:12 | NUR ---
RN NOTES PT STABLE, CONFUSED AT TIMES , SR UP x3, CALL LIGHT WITHIN EASY REACH, WILL ENDOSE TO CHIEF JUVENILE PROBATION OFFICER NURSE FOR CONTINUITY OF CARE .
--- NOTE | 2018-09-08 19:44 | NUR ---
RUG HOOKER HAND. INITIAL ASSESSMENT. RECEIVED THE T RST ON THE BED. AWAKE, ALERT, FOLLOW COMMANDS. CHOCOLATE FINISHER SHOWING S TACH. OXYGEN 3L VIA NASAL CANNULA. SAT 98%. NO ACUTE DISTRESS NOTED. IV RT UPPER ARM MID LINE IVF D51/2NS 75ML/H. FC PATENT, URINE DRAINING, HOB ELEVATED. NPO. WILL CONTINUE TO MONITOR VITALS.
[2018-09-09] VITALS (52 sets, daily range): BP systolic 114–175; BP diastolic 48–102
[2018-09-09] MEDS: IV D5/0.45 NACL 1,000 ML IV PRN (00:50)
[2018-09-09] MEDS: PIPERACILLIN /TAZOBACTAM 2.25 G in IV D5W 50 ML IV SCH ×4 (00:50→18:50)
[2018-09-09] MEDS: BLOOD SUGAR DIAGNOSTIC 1 EACH STRIP IN SCH ×4 (00:50→18:50)
[2018-09-09] MEDS: ALBUTEROL FS 2.5 MG/3 ML VIAL.NEB NEB SCH ×6 (03:02→22:47)
--- NOTE | 2018-09-09 04:09 | NUR ---
DINNER COOK AM CARE, ORAL CARE, BED BATH GIVEN. LINEN CHANGED, REMAINING SAME OXYGEN TOLERATED WELL. SAT 98%, NO ACUTE DISTRESS NOTED. FIELD NURSE SHOWING NSR. IV RT UPPER ARM MID LINE. IVF D51/2 NS 75ML/H. HOB ELEVATED, FC PATENT, URINE DRAINING, TURN AND REPOSITION Q2H. WILL CONTINUE TO MONITOR VITALS.
[2018-09-09 04:37] LABS: BASOPHILS % (AUTO) 0.4 % (0.0-2.0); EOSINOPHILS % (AUTO) 2.5 % (0.0-6.0); HEMATOCRIT 41 % (39-51); HEMOGLOBIN 13.5 g/dL (13.5-17.5); LYMPHOCYTES # (AUTO) 0.9 /CMM (0.8-4.8); LYMPHOCYTES % (AUTO) 8.9 % (20.0-44.0); MEAN CORPUSCULAR HGB CONC 33 g/dl (31.0-36.0); MEAN CORPUSCULAR VOLUME 98 fL (80-96); MONOCYTES # (AUTO) 0.9 /CMM (0.1-1.30); MONOCYTES % (AUTO) 9.3 % (2.0-12.0); NEUTROPHILS # (AUTO) 7.9 /CMM (1.8-8.9); NEUTROPHILS % (AUTO) 78.9 % (43.0-81.0); PLATELET COUNT (AUTO) 212 /CMM (150-450); RED BLOOD CELL COUNT(AUTO) 4.17 MIL/uL (4.5-6.0); WHITE BLOOD COUNT (AUTO) 10.1 K/uL (4.3-11.0)
[2018-09-09 04:39] LABS: CALCIUM, SERUM 8.9 mg/dL (8.5-10.1); CARBON DIOXIDE 35 mmol/L (21-32); CHLORIDE 114 mmol/L (98-107); CREATININE 1.4 mg/dL (0.6-1.3); GLUCOSE 104 mg/dL (74-106); POTASSIUM 4.3 mmol/L (3.5-5.1); SODIUM SERUM 154 mmol/L (136-145); UREA NITROGEN, BLOOD 17 mg/dL (7-18)
--- NOTE | 2018-09-09 07:45 | NUR ---
RN NOTE: RECEIVED PATIENT IN BED, AWAKE, ALERT AND VERBALLY RESPONSIVE. RESPIRATION EVEN AND UNLABORED WITH O2 3L/MIN VIA NC SATURATING 98%. DENIED ANY PAIN. PATIENT CURRENTLY NPO STATUS. HOB ELEVATED. (R) UA MIDLINE NOTED PATENT AND INTACT INFUSING WITH D5HNS @75ML/HR. DECKER CATHETER IN PLACED WITH YELLOW URINE DRAINING TO GRAVITY. CALL LIGHT WITHIN REACH. NEEDS ANTICIPATED. PENDING SWALLOW EVALUATION AT THIS TIME.
--- NOTE | 2018-09-09 08:25 | NUR ---
RN NOTE: BEDSIDE NURSING SWALLOW EVALUATION WAS DONE AT THE BEDSIDE WITH THE NURSE. PATIENT WAS ALERT, ORIENTED, WATCHING TELEVISION AND ABLE TO VERBALIZE HIS NEEDS. PATIENT SWALLOWED WELL AND WAS ABLE TO DRINK THIN LIQUID WITHOUT COUGHING OR GAGGING. HO GRIMES NP WAS INFORMED THAT PATIENT TOLERATED THE NURSING SWALLOW EVALUATION AND PER LACE WINDER OK TO GIVE MEDICATIONS, BUT STILL WAIT FOR THE SPEECH THERAPIST TO COME AND SEE THE PATIENT TODAY FOR THE SWALLOW EVALUATION.
[2018-09-09] MEDS: CARVEDILOL 3.125 MG TABLET PO SCH ×2 (08:32→19:00)
[2018-09-09] MEDS: ASPIRIN EC 81 MG TABLET.DR PO SCH (08:32)
[2018-09-09] MEDS: HEPARIN SODIUM, PORCINE 5000 UNITS/1 ML VIAL SQ SCH ×2 (08:33→21:09)
[2018-09-09] MEDS: PANTOPRAZOLE 40 MG TABLET.DR PO SCH (08:33)
[2018-09-09] MEDS: OLANZAPINE 5 MG TABLET PO SCH ×2 (08:33→19:00)
[2018-09-09] MEDS: IV D5W 1,000 ML IV PRN (11:19)
[2018-09-09] MEDS ORDERED: hydrALAZINE HCL 25 MG TABLET PO PRN (13:30)
--- NOTE | 2018-09-09 13:33 | NUR ---
RN NOTE: CALLED AND SPOKE WITH HO GRIMES NP REGARDING THE PATIENT'S HIGH BP AND THE PATIENT'S CONCERN THAT HE IS ALREADY FEELING HUNGRY. TEMPERING KILN TENDER WAS INFORMED THAT THE PATIENT'S LATEST BLOOD SUGAR WAS 93 WITH THE CURRENT IV FLUID. AND REGARDING THE SPEECH THERAPIST, THE REHAB STAFF ALREADY SAID THAT THE SPEECH THERAPIST WILL COME AT ANY TIME TODAY. JJ TEAGUE WAS ASSURED THAT THE PATIENT HAS BEEN ABLE TO DRINK THIN WATER AND NO COUGHING OR GAGGING WAS NOTED. PER HO, OK TO GIVE FOOD FOR THE PATIENT, BUT STILL HAVE THE SPEECH THERAPIST DO THE SWALLOW EVALUATION. TEMPERING KILN TENDER ALSO GAVE A PRN BP MEDICATION TO CONTROL THE PATIENT'S BP. PATIENT WAS MADE AWARE AND LUNCH TRAY WAS ORDERED IN THE KITCHEN.
--- NOTE | 2018-09-09 17:10 | NUR ---
RN NOTE: REPORT WAS GIVEN TO ALEX SMILEY RN FOR CONTINUITY OF CARE AND PATIENT WAS TRANSFERRED TO ROOM 111-1 WITH ALL MEDICATIONS. (L) AC IV SITE NOTED INFUSING WITH D5W @70ML/HR. PATIENT ON STABLE CONDITION. PATIENT WAS BROUGHT TO THE UNIT WITH HIS SOCKS ONLY.
--- NOTE | 2018-09-09 17:18 | NUR ---
RN NOTE: PATIENT WAS SEEN BY THE SPEECH THERAPIST AND SWALLOW EVALUATION WAS DONE AT THE BEDSIDE. PER SPEECH THERAPIST, OK TO KEEP THE PATIENT ON MECHANICAL SOFT CARDIAC DIET BUT WITH GROUND CONSISTENCY. QUALITY DIRECTOR MADE AWARE AND AGREED. DIET ORDER WAS PLACED AND INFORMED KITCHEN ABOUT IT. PATIENT WAS AWARE.
--- NOTE | 2018-09-09 17:20 | NUR ---
RN NOTE: PATIENT WAS BROUGHT TO ROOM 111-1 AND BEDSIDE REPORT WAS GIVEN TO ALEX SMILEY RN FOR CONTINUITY OF CARE.
--- NOTE | 2018-09-09 19:49 | NUR ---
REPAIR COIL WINDER CLOSING NOTE PATIENT IN BED AWAKE IN SEMI-FOWLERS. A/O X 4, NO DISTRESS, NO SOB. (L) AC IV SITE NOTED INFUSING WITH D5W @70ML/HR. PATIENT ON STABLE CONDITION. PATIENT WAS BROUGHT TO THE UNIT WITH HIS SOCKS ONLY. CARE ENDORSED TO SAWING AND ASSEMBLY SUPERVISOR RN.
--- NOTE | 2018-09-09 20:15 | NUR ---
WIRE GALVANIZER OPENING NOTES RECEIVED REPORT FROM SHERICE MARADIAGA. PATIENT A/A/O X3, ABLE TO MAKE NEEDS KNOWN & STATE PAIN. BREATHING EVEN & UNLABORED, TOLERATING O2 @ 2LPM VIA NC. DENIES ANY SOB OR DIFFICULTY BREATHING. ON TELE W/ SINUS RHYTHM W/ PACS, HR 80S. LEFT UPPER ARM MIDLINE INTACT & PATENT W/ DRESSING CDI & D5W INFUSING WELL @ 70 ML/HR. DECKER CATH DRAINING YELLOW URINE. DENIES ANY PAIN OR DISCOMFORT @ THIS TIME. SAFETY MEASURES IN PLACE W/ SIDE RAILS UP & BED ALARM ON. INSTRUCTED TO USE CALL FOR ASSISTANCE. WILL CONTINUE TO MONITOR.
[2018-09-10] VITALS: BP 90/50
[2018-09-10] MEDS: PIPERACILLIN /TAZOBACTAM 2.25 G in IV D5W 50 ML IV SCH ×4 (00:15→18:18)
[2018-09-10] MEDS: BLOOD SUGAR DIAGNOSTIC 1 EACH STRIP IN SCH ×4 (00:15→17:33)
[2018-09-10] MEDS: INSULIN REGULAR, HUMAN 100 UNIT/ML 3 ML VIAL SQ PRN ×3 (00:15→12:24)
[2018-09-10] MEDS: ALBUTEROL FS 2.5 MG/3 ML VIAL.NEB NEB SCH ×6 (02:55→23:37)
[2018-09-10] MEDS: IV D5W 1,000 ML IV PRN ×2 (03:59→21:11)
[2018-09-10 04:00] VITALS: BP 133/70
[2018-09-10 08:00] VITALS: BP 110/77
--- NOTE | 2018-09-10 08:09 | NUR ---
MEDICAL ADMINISTRATIVE TECHNICIAN OPENING NOTE PATIENT IN BED AWAKE IN SEMI-FOWLERS. A/O X 4, NO DISTRESS, NO SOB. (L) AC IV SITE INTACT AND PATENT. PATIENT IN STABLE CONDITION. DECKER INTACT AND PATENT DRAINING CLEAR YELLOW. V/S WNL. SAFETY MEASURES IN PLACE. CALL LIGHT WITHIN REACH. WILL CONTINUE TO MONITOR.
[2018-09-10 08:14] LABS: BASOPHILS % (AUTO) 0.5 % (0.0-2.0); EOSINOPHILS % (AUTO) 3.3 % (0.0-6.0); HEMATOCRIT 40 % (39-51); HEMOGLOBIN 13.3 g/dL (13.5-17.5); LYMPHOCYTES # (AUTO) 1.2 /CMM (0.8-4.8); LYMPHOCYTES % (AUTO) 13.7 % (20.0-44.0); MEAN CORPUSCULAR HGB CONC 33 g/dl (31.0-36.0); MEAN CORPUSCULAR VOLUME 97 fL (80-96); MONOCYTES # (AUTO) 0.8 /CMM (0.1-1.30); MONOCYTES % (AUTO) 9.3 % (2.0-12.0); NEUTROPHILS # (AUTO) 6.5 /CMM (1.8-8.9); NEUTROPHILS % (AUTO) 73.2 % (43.0-81.0); PLATELET COUNT (AUTO) 186 /CMM (150-450); RED BLOOD CELL COUNT(AUTO) 4.12 MIL/uL (4.5-6.0); WHITE BLOOD COUNT (AUTO) 8.9 K/uL (4.3-11.0)
[2018-09-10 08:18] LABS: CALCIUM, SERUM 8.6 mg/dL (8.5-10.1); CARBON DIOXIDE 31 mmol/L (21-32); CHLORIDE 107 mmol/L (98-107); CREATININE 1.4 mg/dL (0.6-1.3); GLUCOSE 103 mg/dL (74-106); POTASSIUM 3.9 mmol/L (3.5-5.1); SODIUM SERUM 145 mmol/L (136-145); UREA NITROGEN, BLOOD 20 mg/dL (7-18)
[2018-09-10] MEDS: OLANZAPINE 5 MG TABLET PO SCH ×2 (09:39→17:05)
[2018-09-10] MEDS: PANTOPRAZOLE 40 MG TABLET.DR PO SCH (09:39)
[2018-09-10] MEDS: ASPIRIN EC 81 MG TABLET.DR PO SCH (09:39)
[2018-09-10] MEDS: CARVEDILOL 3.125 MG TABLET PO SCH ×2 (09:39→17:07)
[2018-09-10] MEDS: HEPARIN SODIUM, PORCINE 5000 UNITS/1 ML VIAL SQ SCH ×2 (09:40→21:05)
[2018-09-10] MEDS: POTASSIUM CHLORIDE 20 MEQ TAB.PRT.SR PO SCH ×3 (10:50→12:50)
[2018-09-10] MEDS: FUROSEMIDE 40 MG/4 ML VIAL IV SCH ×3 (10:50→17:05)
[2018-09-10 12:00] VITALS: BP 104/64
[2018-09-10 16:00] VITALS: BP 112/80
--- NOTE | 2018-09-10 19:45 | NUR ---
RN Notes Received patient asleep, HOB elevated with O2 inhalation at 2LPM via NC and tolerated well.Breathing regular and unlabored. No signs of distress and discomfort noted. Right upper arm midline intact with ongoing IVF infusing well. Safety measures and fall precaution in place with call light within reach. Will continue to monitor patient.
[2018-09-10 20:00] VITALS: BP 92/68
--- NOTE | 2018-09-10 20:27 | NUR ---
INSURANCE SALES ASSOCIATE CLOSING NOTE PATIENT IN BED AWAKE IN SEMI-FOWLERS. A/O X 4, NO DISTRESS, NO SOB. (L) AC IV SITE NOTED INFUSING WITH D5W @70ML/HR. PATIENT ON STABLE CONDITION. PATIENT WAS BROUGHT TO THE UNIT WITH HIS SOCKS ONLY. CARE ENDORSED TO INSURANCE ACCOUNT SPECIALIST RN.
[2018-09-11] VITALS: BP 98/70
[2018-09-11] MEDS: BLOOD SUGAR DIAGNOSTIC 1 EACH STRIP IN SCH ×5 (00:02→22:28)
[2018-09-11] MEDS: PIPERACILLIN /TAZOBACTAM 2.25 G in IV D5W 50 ML IV SCH ×4 (00:03→17:32)
[2018-09-11] MEDS: ALBUTEROL FS 2.5 MG/3 ML VIAL.NEB NEB SCH ×6 (03:27→23:20)
[2018-09-11 04:00] VITALS: BP 98/65
--- NOTE | 2018-09-11 06:37 | NUR ---
RN Notes Patient stable overnight, vital signs stable, afebrile. Denies SOB and any discomfort. Tele monitor reads sinus rhythm. Current diet tolerated well , no signs of aspiration noted. All needs attended. Will endorse to morning RN for continuity of care.
[2018-09-11 07:41] LABS: BASOPHILS % (AUTO) 0.6 % (0.0-2.0); EOSINOPHILS % (AUTO) 4.6 % (0.0-6.0); HEMATOCRIT 42 % (39-51); HEMOGLOBIN 14.1 g/dL (13.5-17.5); LYMPHOCYTES # (AUTO) 1.3 /CMM (0.8-4.8); LYMPHOCYTES % (AUTO) 15.5 % (20.0-44.0); MEAN CORPUSCULAR HGB CONC 33 g/dl (31.0-36.0); MEAN CORPUSCULAR VOLUME 96 fL (80-96); MONOCYTES # (AUTO) 0.8 /CMM (0.1-1.30); MONOCYTES % (AUTO) 10.1 % (2.0-12.0); NEUTROPHILS # (AUTO) 5.7 /CMM (1.8-8.9); NEUTROPHILS % (AUTO) 69.2 % (43.0-81.0); PLATELET COUNT (AUTO) 222 /CMM (150-450); RED BLOOD CELL COUNT(AUTO) 4.38 MIL/uL (4.5-6.0); WHITE BLOOD COUNT (AUTO) 8.3 K/uL (4.3-11.0)
[2018-09-11 08:00] VITALS: BP 119/61
[2018-09-11 08:01] LABS: ALANINE AMINOTRANSFERASE 28 U/L (12-78); ALBUMIN 2.3 g/dL (3.4-5.0); ALKALINE PHOSPHATASE 68 U/L (46-116); ASPARTATE AMINOTRANSFERASE 32 U/L (15-37); BILIRUBIN,TOTAL 0.5 mg/dL (0.2-1.0); CALCIUM, SERUM 8.8 mg/dL (8.5-10.1); CARBON DIOXIDE 36 mmol/L (21-32); CHLORIDE 101 mmol/L (98-107); CREATININE 1.9 mg/dL (0.6-1.3); GLUCOSE 113 mg/dL (74-106); MAGNESIUM 1.9 mg/dL (1.8-2.4); PHOSPHORUS 4.1 mg/dL (2.5-4.9); POTASSIUM 3.8 mmol/L (3.5-5.1); SODIUM SERUM 141 mmol/L (136-145); TOTAL PROTEIN, SERUM 7.4 g/dL (6.4-8.2); UREA NITROGEN, BLOOD 27 mg/dL (7-18)
--- NOTE | 2018-09-11 08:12 | NUR ---
OLDER ADULT SOCIAL WORK SPECIALIST OPENING NOTE PATIENT RECEIVED IN BED AWAKE IN SEMI-FOWLERS. A/O X 4, NO DISTRESS, NO SOB. NO CHANGES OVERNIGHT REPORTED. ON TELE SR 90'S. MEGAN MIDLINE INTACT AND RUNNING D5W@70ML/HR. PATIENT IN STABLE CONDITION. DECKER INTACT AND PATENT DRAINING CLEAR YELLOW. SAFETY MEASURES IN PLACE. CALL LIGHT WITHIN REACH. WILL CONTINUE TO MONITOR.
[2018-09-11] MEDS: HEPARIN SODIUM, PORCINE 5000 UNITS/1 ML VIAL SQ SCH ×2 (09:44→22:34)
[2018-09-11] MEDS: PANTOPRAZOLE 40 MG TABLET.DR PO SCH (09:46)
[2018-09-11] MEDS: POTASSIUM CHLORIDE 20 MEQ TAB.PRT.SR PO SCH ×2 (09:46→10:36)
[2018-09-11] MEDS: ASPIRIN EC 81 MG TABLET.DR PO SCH (09:46)
[2018-09-11] MEDS: OLANZAPINE 5 MG TABLET PO SCH ×2 (09:46→17:32)
[2018-09-11] MEDS: CARVEDILOL 3.125 MG TABLET PO SCH ×2 (09:47→17:33)
--- NOTE | 2018-09-11 09:49 | NUR ---
RN NOTE: SPOKE WITH HO GRIMES NP REGARDING THE PATIENT'S BLOOD SUGAR CHECK Q6HR. PATIENT WAS EATING MEALS ALREADY. PER JJ TEAGUE OK TO CHANGE THE BLOOD SUGAR CHECK TO ACHS WITH MILD REGULAR INSULIN SLIDING SCALE. PATIENT MADE AWARE.
[2018-09-11] MEDS: FUROSEMIDE 40 MG/4 ML VIAL IV SCH ×3 (09:52→17:34)
[2018-09-11] MEDS ORDERED: INSULIN REGULAR, HUMAN 100 UNIT/ML 3 ML VIAL SQ PRN (10:00)
[2018-09-11] MEDS ORDERED: DEXTROSE 50%-WATER 50 ML DISP.SYRIN IV PRN (10:00)
[2018-09-11 16:00] VITALS: BP 93/51
--- NOTE | 2018-09-11 19:29 | NUR ---
HAND ALTERATIONS SEAMSTRESS CLOSING NOTE PATIENT IN BED AWAKE IN SEMI-FOWLERS. A/O X 3, NO DISTRESS, NO SOB. MEGAN MIDLINE INTACT AND PATENT. DECKER INTACT AND PATENT DRAINING CLEAR YELLOW. PATIENT ABLE TO AMBULATE WITH S/B ASSISTANCE. ON 2L O2 VIA NC. SKIN INTACT. SAFETY MEASURES IN PLACE. CALL LIGHT WITHIN REACH. CARE ENDORSED TO ROOTER OPERATOR RN.
[2018-09-11 20:00] VITALS: BP 90/57
[2018-09-12] MEDS: PIPERACILLIN /TAZOBACTAM 2.25 G in IV D5W 50 ML IV SCH ×4 (00:22→17:49)
[2018-09-12] MEDS: ALBUTEROL FS 2.5 MG/3 ML VIAL.NEB NEB SCH ×6 (03:09→23:29)
[2018-09-12 07:09] LABS: BASOPHILS # (AUTO) 0.1 /CMM (0.0-0.2); EOSINOPHILS % (AUTO) 5.2 % (0.0-6.0); HEMATOCRIT 41 % (39-51); HEMOGLOBIN 13.4 g/dL (13.5-17.5); LYMPHOCYTES # (AUTO) 1.2 /CMM (0.8-4.8); LYMPHOCYTES % (AUTO) 15.5 % (20.0-44.0); MEAN CORPUSCULAR HGB CONC 33 g/dl (31.0-36.0); MEAN CORPUSCULAR VOLUME 96 fL (80-96); MONOCYTES # (AUTO) 0.8 /CMM (0.1-1.30); MONOCYTES % (AUTO) 9.6 % (2.0-12.0); NEUTROPHILS # (AUTO) 5.4 /CMM (1.8-8.9); NEUTROPHILS % (AUTO) 68.7 % (43.0-81.0); PLATELET COUNT (AUTO) 222 /CMM (150-450); WHITE BLOOD COUNT (AUTO) 7.9 K/uL (4.3-11.0)
--- NOTE | 2018-09-12 07:15 | NUR ---
RN OPENING NOTE RECEIVED PATIENT AWAKE AND CONFUSED. ONLY STATED NAME AND BDAY. NC HAS BEEN REMOVED, REORIENTED TO NOT REMOVED NC. ON 2L. HAS A DECKER CATH, DRAINING WELL. YELLOW ORANGE IN COLOR. HAS A RIGHT UPPER ARM MIDLINE TKO. BED LOCKED AND ON LOWEST POSITION. ON KCI MATTRESS. CALL LIGHT WITHIN REACH. WILL CONTINUE TO MONITOR CLOSELY
[2018-09-12] MEDS: BLOOD SUGAR DIAGNOSTIC 1 EACH STRIP IN SCH ×4 (07:32→21:57)
[2018-09-12 07:50] LABS: ALANINE AMINOTRANSFERASE 39 U/L (12-78); ALBUMIN 2.2 g/dL (3.4-5.0); ALKALINE PHOSPHATASE 69 U/L (46-116); ASPARTATE AMINOTRANSFERASE 51 U/L (15-37); BILIRUBIN,TOTAL 0.5 mg/dL (0.2-1.0); CALCIUM, SERUM 8.4 mg/dL (8.5-10.1); CARBON DIOXIDE 36 mmol/L (21-32); CHLORIDE 101 mmol/L (98-107); CREATININE 2.1 mg/dL (0.6-1.3); GLUCOSE 102 mg/dL (74-106); MAGNESIUM 2.1 mg/dL (1.8-2.4); PHOSPHORUS 3.9 mg/dL (2.5-4.9); SODIUM SERUM 142 mmol/L (136-145); TOTAL PROTEIN, SERUM 7.2 g/dL (6.4-8.2); UREA NITROGEN, BLOOD 37 mg/dL (7-18)
[2018-09-12 08:00] VITALS: BP 91/64
[2018-09-12] MEDS: PANTOPRAZOLE 40 MG TABLET.DR PO SCH (08:29)
[2018-09-12] MEDS: OLANZAPINE 5 MG TABLET PO SCH ×2 (08:29→16:27)
[2018-09-12] MEDS: ASPIRIN EC 81 MG TABLET.DR PO SCH (08:29)
[2018-09-12] MEDS: CARVEDILOL 3.125 MG TABLET PO SCH ×2 (08:30→16:27)
[2018-09-12] MEDS: HEPARIN SODIUM, PORCINE 5000 UNITS/1 ML VIAL SQ SCH ×2 (08:51→21:58)
[2018-09-12] MEDS ORDERED: IV NS 0.9% 1,000 ML IV PRN (11:05)
--- NOTE | 2018-09-12 12:11 | NUR ---
RN NOTE PER NOC SHIFT, PATIENT TRIED TO GET OFF THE BED AND PULLED HIS DECKER CATH. HEMATURIA WAS SEEN ON THE URINE WITH LITTLE SEDIMENTS. MD AWARE AND ORDERED TO TAKE THE DECKER OUT. DECKER HAS BEEN TAKEN OUT. PATIENT DOES NOT COMPLAIN OF ANY PAIN IN THE AREA.
[2018-09-12 16:00] VITALS: BP 100/64
--- NOTE | 2018-09-12 17:30 | NUR ---
RN NOTE PATIENT AMBULATES TO GO TO THE BATHROOM WITH ASSIST. URINATED X4 AND BM X1.
--- NOTE | 2018-09-12 18:43 | NUR ---
RN CLOSING NOTE PATIENT ALERT AND ORIENTED TO SELF AND BDAY. A LITTLE CONFUSED AT TIMES. REORIENTED MULTIPLE TIMES TODAY. PATIENT IS CONTINENT AND AMBULATORY USING A WALKER WITH ASSIST TO THE BATHROOM. HAS A RIGHT UPPER ARM MIDLINE ON TKO. NO INSULIN COVERAGE NEEDED. ON 3L NC, NO COMPLAINS OF ANY PAIN OR SOB. WILL ENDORSE TO NOC SHIFT FOR CONTINUITY OF CARE
[2018-09-12 20:00] VITALS: BP 113/74
[2018-09-13] MEDS: ALBUTEROL FS 2.5 MG/3 ML VIAL.NEB NEB SCH ×5 (03:30→19:40)
--- NOTE | 2018-09-13 07:00 | NUR ---
MS RN OPENING NOTES RECEIVED PT LYING ON BED.ALERT/ORIENTED X2-3 WITH FORGETFUL.ON 2L O2 VIA NC ,SATURATING WELL.NO SOB AND ACUTE DISTRESS NOTED.CAN AMBULATE WELL WITH WALKER.MID LINE IS ON RIGHT UA.SITE IS CLEAN,DRY AND INTACT.NO INFILTRATION NOTED.SAFETY IS MAINTAINED AT ALL TIMES.BED IS IN LOW POSITION AND LOCKED.CALL LIGHT IS WITHIN REACH.WILL CONTINUE TO MONITOR THE PT CLOSELY.
[2018-09-13 07:05] LABS: CALCIUM, SERUM 8.7 mg/dL (8.5-10.1); CARBON DIOXIDE 34 mmol/L (21-32); CHLORIDE 104 mmol/L (98-107); CREATININE 1.7 mg/dL (0.6-1.3); GLUCOSE 96 mg/dL (74-106); POTASSIUM 4.5 mmol/L (3.5-5.1); SODIUM SERUM 142 mmol/L (136-145); UREA NITROGEN, BLOOD 40 mg/dL (7-18)
[2018-09-13 07:13] LABS: BASOPHILS % (AUTO) 0.6 % (0.0-2.0); HEMATOCRIT 41 % (39-51); HEMOGLOBIN 13.6 g/dL (13.5-17.5); LYMPHOCYTES # (AUTO) 1.1 /CMM (0.8-4.8); LYMPHOCYTES % (AUTO) 18.6 % (20.0-44.0); MEAN CORPUSCULAR HGB CONC 34 g/dl (31.0-36.0); MEAN CORPUSCULAR VOLUME 96 fL (80-96); MONOCYTES # (AUTO) 0.7 /CMM (0.1-1.30); MONOCYTES % (AUTO) 10.7 % (2.0-12.0); NEUTROPHILS % (AUTO) 64.1 % (43.0-81.0); PLATELET COUNT (AUTO) 228 /CMM (150-450); RED BLOOD CELL COUNT(AUTO) 4.25 MIL/uL (4.5-6.0); WHITE BLOOD COUNT (AUTO) 6.2 K/uL (4.3-11.0)
[2018-09-13] MEDS: BLOOD SUGAR DIAGNOSTIC 1 EACH STRIP IN SCH ×4 (07:42→21:40)
[2018-09-13 08:00] VITALS: BP 100/73
[2018-09-13] MEDS: ASPIRIN EC 81 MG TABLET.DR PO SCH (08:13)
[2018-09-13] MEDS: OLANZAPINE 5 MG TABLET PO SCH ×2 (08:13→16:50)
[2018-09-13] MEDS: CARVEDILOL 3.125 MG TABLET PO SCH ×2 (08:13→16:51)
[2018-09-13] MEDS: PANTOPRAZOLE 40 MG TABLET.DR PO SCH (08:13)
[2018-09-13] MEDS: HEPARIN SODIUM, PORCINE 5000 UNITS/1 ML VIAL SQ SCH (08:29)
--- NOTE | 2018-09-13 08:30 | NUR ---
MS RN NOTES NOTED WITH IV LINE ON LEFT FA G20 IS LEAKING.NO INFILTRATION NOTED.PT C/O PAIN,DISCONTINUE THE IV LINE.
[2018-09-13 09:24] LABS: APPEARANCE,URINE SL CLOUDY (CLEAR); BILIRUBIN,URINE NEGATIVE (NEGATIVE); BLOOD, URINE 3+ Ery/uL (NEGATIVE); COLOR,URINE YELLOW (YELLOW); KETONES,URINE NEGATIVE (NEGATIVE); LEUKOCYTE ESTERASE ,URINE 1+ (NEGATIVE); NITRITE, URINE NEGATIVE (NEGATIVE); PH,URINE 6.5 (5.0-8.0); PROTEIN,URINE 1+ mg/dl (NEGATIVE); UGLUCOSE NEGATIVE (NEGATIVE)
--- NOTE | 2018-09-13 09:30 | NUR ---
MS RN NOTES PT IS LYING ON BED WITH ROOM AIR,REFUSED TO HAVE O2 VIA NC.SATURATING WELL WITH 95-96%.
[2018-09-13 10:02] LABS: CREATININE, URINE 75.4 MG/DL (30.0-125.0)
[2018-09-13 10:06] LABS: BACTERIA,URINE Rare /HPF (None Seen); RBC,URINE TOO NUMEROUS TO COUN /HPF (0-2); SQUAMOUS EPITHELIAL CELL,UR Rare /HPF (None Seen)
[2018-09-13 10:11] LABS: URINE TOTAL PROTEIN 40.1 mg/dL (0-11.9)
[2018-09-13 10:26] LABS: EOSINOPHIL,URINE Few
[2018-09-13 12:00] VITALS: BP 123/78
[2018-09-13] MEDS ORDERED: NICO-677 TP (14:41)
--- NOTE | 2018-09-13 15:50 | NUR ---
MS RN NOTES REPORT GIVEN TO HIREN LIN IN [facility].
[2018-09-13 16:00] VITALS: BP 118/78
[2018-09-13 17:48] LABS: ABG BASE EXCESS 8.1 mmol/L; ABG OXYGEN SATURATION 94.7 % (92.0-98.5); ABG PCO2 64.4 mmHg (35.0-45.0); ABG PH 7.364 (7.350-7.450); ABG PO2 79.3 mmHg (75.0-100.0); AaDO2 44.4 mmHg; MetHb 0.5 % (0.0-1.5); O2Hb 93.3 % (94.0-97.0); SITE, ABG Right Radial; VENT MODE, BG NC 2L
--- NOTE | 2018-09-13 18:00 | NUR ---
MS RN NOTES WHEN THE TRANSPORTATION TEAM IS HERE TO ONCOLOGIST THE PT,NOTED THE RESPIRATION IS 32BPM.PT ON 2L O2 VIA NC.PT DOESN'T C/O SOB AND ACUTE DISTRESS.NOTED TO COFOUNDER JUSTYNA,ORDERED STAT ABG.ABG RESULT DONE AND IT SHOWS CO2-64.4.COFOUNDER IS OK TO D/C PT WITH THAT LEVEL.[facility]PO[facility] CARA MAR[facility]AGA, PER RT THEY ARE OK TO ACCEPT THE PT WITH THAT CO2 LEVEL LONG PT DOESN'T C/O SOB.TRANSPORTATION TEAM SAID THEY GONNA COME BACK TO ONCOLOGIST THE PT AFTER A PT.CHARGE NURSE MADE AWARE.
--- NOTE | 2018-09-13 19:03 | NUR ---
MS RN CLOSING NOTES PT IS LYING ON BED,READY TO ROUTE RID[facility] SUPERVISOR [facility] 2 L O2 VIA NC,NO SOB AND ACUTE DISTRESS NOTED.ALL THE DUE MEDS ARE GIVEN.NO SIGNIFICANT CHANGES NOTED IN THE SHIFT.ENDORSED TO [employer] PUMP OPERATOR HIREN DELVALLE TO FOLLOW UP THE DISCHARGE AND ENDORSED ABOUT BELONGINGS(ONEIL-109$).
--- NOTE | 2018-09-13 19:10 | NUR ---
MS RN NOTE PATIENT REPORT GIVEN BEDSIDE. PATIENT IN BED A/O X 2-3. PATIENT ON 2L O2 NC NO S/S OF SOB/. PATIENT DENIES ANY COMPLAINTS OF PAIN OR DISCOMFORT. [facility] COUNTED WITH DAY RN EULOGIO THE PATIENTS BELONGINGS (ONEIL 109). RN WILL CONTINUE TO MONITOR.
[2018-09-13 20:00] VITALS: BP_SYST 101; BP_DIAS 101; BP_DIAS 71
--- NOTE | 2018-09-13 21:15 | NUR ---
MS RN NOTE [facility] CALENDERER TIME FOR D/C. DISPATCH STATED 10:15, CALLED CARA THE ADMITTING NURSE AT [facility] AND SHE ACKNOWLEDGED THE TIME.
--- NOTE | 2018-09-13 22:55 | NUR ---
MS RN NOTE TRANSPORTATION TEAM ARRIVED. PATIENT V/S STABLE FOR TRANSPORT. MIDLINE REMOVED. PATIENT PLACED IN GURNEY. REPORT GIVEN TO TRANSPORTATION TEAM, PATIENT BELONGINGS COUNTED IN FRONT OF CHARGE NURSE ($109) AND TRANSFER OF CARE GIVEN TO [facility]SP[facility]ATION TEAM.
== END 2018-09-13 23:10 | DRG 871 ==
LOC: ER 04:26 → ICU 08:05 → TELE1 09-09 17:34 → MEDSG1 09-11 09:04
PROVIDERS: ADMIT Internal Medicine; ATTEND Nurse Practitioner Acute Care
PROC: 5A1945Z Respiratory Ventilation, 24-96 Consecutive Hours (ICD-10-PCS; principal; 2018-09-06)
PROC: 0BH17EZ Insertion of Endotracheal Airway into Trachea, Via Natural or Artificial Opening (ICD-10-PCS; 2018-09-06)
PROC: 05H533Z Insertion of Infusion Device into Right Subclavian Vein, Percutaneous Approach (ICD-10-PCS; 2018-09-06)
DX: A41.9 Sepsis, unspecified organism (principal); J69.0 Pneumonitis due to inhalation of food and vomit; J96.02 Acute respiratory failure with hypercapnia; J96.01 Acute respiratory failure with hypoxia; N17.0 Acute kidney failure with tubular necrosis; G93.41 Metabolic encephalopathy; E43 Unspecified severe protein-calorie malnutrition; J98.11 Atelectasis; I13.0 Hypertensive heart and chronic kidney disease with heart failure and stage 1 through stage 4 chronic kidney disease, or unspecified chronic kidney disease; I50.32 Chronic diastolic (congestive) heart failure; E87.0 Hyperosmolality and hypernatremia; J44.0 Chronic obstructive pulmonary disease with (acute) lower respiratory infection; E87.5 Hyperkalemia; D72.829 Elevated white blood cell count, unspecified; F20.9 Schizophrenia, unspecified; N18.9 Chronic kidney disease, unspecified; Z86.73 Personal history of transient ischemic attack (TIA), and cerebral infarction without residual deficits; N40.0 Benign prostatic hyperplasia without lower urinary tract symptoms; J32.2 Chronic ethmoidal sinusitis; I70.0 Atherosclerosis of aorta; E86.9 Volume depletion, unspecified; E11.65 Type 2 diabetes mellitus with hyperglycemia; E11.22 Type 2 diabetes mellitus with diabetic chronic kidney disease; E86.1 Hypovolemia; D63.8 Anemia in other chronic diseases classified elsewhere; F17.210 Nicotine dependence, cigarettes, uncomplicated; E78.5 Hyperlipidemia, unspecified
CPT/HCPCS: 31720; 36415; 36569; 36600; 70450-TC; 71045-TC; 80048-TC; 80053-TC; 80061-TC; 80076-TC; 80202-TC; 81000-TC; 82140-TC; 82570-TC; 82803-TC; 82962-TC; 83605-TC; 83735-TC; 83880; 84100-TC; 84155-TC; 84300-TC; 84484-TC; 85025-TC; 85730-TC; 87040-TC; 87081-TC; 87086-TC; 92526; 92611-TC; 93307-TC; 94002-TC; 94003-TC; 94760-TC; 94799-TC; 97110-TC; 97116-TC; 97530-TC; 99082-TC; A4216; C9113; G0378; J0610; J1644; J1815; J1940; J2060; J2310; J2543; J3370; J3490; J7030; J7042; J7050; J7060; J7070; Q0162

== ENCOUNTER 2018-12-21 13:17 | Inpatient (IN) | payer MEDICARE, OTHER ==
[~2018-12-21] VITALS: Ht 177.8 cm; Wt 80.3 kg
[2018-12-21] VITALS (16 sets, daily range): BP systolic 103–155; BP diastolic 52–91
[~2018-12-21 13:17] MED LIST: ACET-868 PO; ALBU2.5V13 IH; ASPI-1152 PO; ATOR80TA PO; BISA10SU11 RC; BUDE0.5A IH; CARV3.12 PO; DOCU-141 PO; FINA5TAB3 PO; HYDR-4384 PO; IPRA0.2S9 IH; LEVA1.2528 IH; MAGN400O6 PO; NA P133E RC; NICO-677 TP; OLAN10TA3 PO; OMEG1CAP PO; TAMS-12 PO
[2018-12-21] MEDS ORDERED: NALOXONE PREFILLED SYRINGE 2 MG/2 ML SYRINGE ONE (13:39)
[2018-12-21 13:52] LABS: BASOPHILS # (AUTO) 0.1 /CMM (0.0-0.2); BASOPHILS % (AUTO) 0.3 % (0.0-2.0); HEMATOCRIT 46 % (39-51); HEMOGLOBIN 14.7 g/dL (13.5-17.5); LYMPHOCYTES # (AUTO) 1.3 /CMM (0.8-4.8); LYMPHOCYTES % (AUTO) 7.7 % (20.0-44.0); MEAN CORPUSCULAR HGB CONC 32 g/dl (31.0-36.0); MEAN CORPUSCULAR VOLUME 103 fL (80-96); MONOCYTES # (AUTO) 1.4 /CMM (0.1-1.30); MONOCYTES % (AUTO) 8.4 % (2.0-12.0); NEUTROPHILS # (AUTO) 13.8 /CMM (1.8-8.9); NEUTROPHILS % (AUTO) 83.6 % (43.0-81.0); PLATELET COUNT (AUTO) 176 /CMM (150-450); RED BLOOD CELL COUNT(AUTO) 4.48 MIL/uL (4.5-6.0); WHITE BLOOD COUNT (AUTO) 16.5 K/uL (4.3-11.0)
--- NOTE | 2018-12-21 13:52 | NUR ---
sepstic work up done; all blood sent to labs
--- NOTE | 2018-12-21 13:55 | NUR ---
RT Pt was intubated by Dr. Pittman due to respiratory failure. Pt is orally intubated with a 7.5 ETT secured at 21cm at the lip line. Positive color change on CO2 detector observed, equal bilateral breath sounds and chest rise noted. NIGHT PATROL INSPECTOR cuff pressure noted. Pt placed on Vent with noted settings per MD order. Vent is plugged into red outlet, alarms are set and audible. Addendum: 12/21/18 at 1512 by YOLETTE ARMANDO RT Amended: Links added.
[2018-12-21] MEDS ORDERED: ALBUTEROL FS 2.5 MG/3 ML VIAL.NEB CONTNEB ONE (14:00)
[2018-12-21] MEDS ORDERED: IV NS 0.9% 1,000 ML BAG IV ONE (14:00)
[2018-12-21] MEDS ORDERED: NALOXONE HCL 0.4 MG/ML AMPUL IV ONE ×2 (14:00)
--- NOTE | 2018-12-21 14:00 | NUR ---
Dr Pittman at bedside for rapid sequence intubation. Verbal order from Dr. Pittman for Roceronium 100mg IVP to R hand G [address] Pittman for Etomidate 20mg IVP to R hand G 20
[2018-12-21 14:12] LABS: SERUM AMMONIA 51 umol/L (11-32)
--- NOTE | 2018-12-21 14:20 | NUR ---
PT TO CT VIA [facility].
[2018-12-21 14:32] LABS: ALANINE AMINOTRANSFERASE 24 U/L (12-78); ALBUMIN 3.1 g/dL (3.4-5.0); ALKALINE PHOSPHATASE 89 U/L (46-116); ASPARTATE AMINOTRANSFERASE 20 U/L (15-37); BILIRUBIN,DIRECT 0.2 mg/dL (0.0-0.2); BILIRUBIN,TOTAL 0.6 mg/dL (0.2-1.0); CALCIUM, SERUM 8.9 mg/dL (8.5-10.1); CREATININE 2.4 mg/dL (0.6-1.3); GLUCOSE 151 mg/dL (74-106); UREA NITROGEN, BLOOD 52 mg/dL (7-18)
--- NOTE | 2018-12-21 14:32 | NUR ---
PT BACK IN RM# 5. PT STABLE, NO RESP DISTRESS NOTED. WILL CONT TO MONITOR.
[2018-12-21 14:37] LABS: CARBON DIOXIDE 37 mmol/L (21-32); CHLORIDE 104 mmol/L (98-107); POTASSIUM 5.8 mmol/L (3.5-5.1); SODIUM SERUM 145 mmol/L (136-145)
[2018-12-21 14:42] LABS: ABG PCO2 171.9 mmHg (35.0-45.0); ABG PH 6.993 (7.350-7.450); ABG PO2 68.7 mmHg (75.0-100.0); AaDO2 321.2 mmHg; COHb 1.8 % (0.5-1.5); MetHb 0.6 % (0.0-1.5); SITE, ABG Left Radial; VENT MODE, BG NON REBREATHER
[2018-12-21] MEDS ORDERED: DEXTROSE 50%-WATER 50 ML DISP.SYRIN IV ONE (15:00)
[2018-12-21] MEDS ORDERED: IV NS 0.9% 500 ML BAG IV ONE (15:00)
[2018-12-21] MEDS ORDERED: SODIUM POLYSTYRENE SULFONATE 15 G/60 ML BOTTLE PO ONE (15:00)
[2018-12-21] MEDS ORDERED: INSULIN REGULAR, HUMAN 100 UNIT/ML 10 ML VIAL IV ONE (15:00)
--- NOTE | 2018-12-21 15:10 | NUR ---
ICU 253
[2018-12-21] MEDS ORDERED: IV NS 0.9% 1,000 ML IV PRN ×2 (15:21→23:20)
--- NOTE | 2018-12-21 16:22 | NUR ---
transferred to ICU
[2018-12-21 16:27] LABS: ABG BASE EXCESS 1.1 mmol/L; ABG OXYGEN SATURATION 99.5 % (92.0-98.5); ABG PCO2 40.9 mmHg (35.0-45.0); ABG PH 7.416 (7.350-7.450); ABG PO2 329.7 mmHg (75.0-100.0); AaDO2 342.4 mmHg; COHb 1.5 % (0.5-1.5); MetHb 0.5 % (0.0-1.5); O2Hb 97.5 % (94.0-97.0); PEEP,BG 5 cm H2O; SITE, ABG Right Brachial; VT, ABG 500 mL
[2018-12-21] MEDS ORDERED: MAGNESIUM HYDROXIDE 30 ML UDC PO PRN (16:30)
[2018-12-21] MEDS ORDERED: Z GUARD REMEDY 2 OZ OINT TP PRN (16:30)
[2018-12-21] MEDS ORDERED: MAG HYDROX/AL HYDROX/SIMETH 30 ML UDC PO PRN (16:30)
[2018-12-21] MEDS ORDERED: ONDANSETRON HCL/PF 4 MG/2 ML VIAL IVP PRN (16:30)
[2018-12-21] MEDS ORDERED: MEROPENEM 500 MG in IV NS 0.9% 50 ML IV SCH (16:30)
[2018-12-21] MEDS ORDERED: FEE PK DOSING 1 MIN EA MC ONE (16:56)
[2018-12-21] MEDS: PROPOFOL 100 ML IV PRN ×2 (17:21→20:27)
[2018-12-21] MEDS: IV NS 0.9% 1,000 ML IV SCH ×2 (17:23→21:15)
[2018-12-21] MEDS: methylPREDNISolone SOD SUCC 40 MG/ML VIAL IV SCH (17:27)
[2018-12-21] MEDS: ENOXAPARIN SODIUM 30 MG/0.3 ML DISP.SYRIN SQ SCH (17:31)
[2018-12-21] MEDS ORDERED: MEROPENEM 500 MG in IV NS 0.9% 100 ML IV SCH (18:00)
[2018-12-21] MEDS: VANCOMYCIN 1 GM in IV D5W 250 ML IV SCH (18:15)
[2018-12-21 18:36] LABS: BILIRUBIN,URINE NEGATIVE (NEGATIVE); BLOOD, URINE 1+ Ery/uL (NEGATIVE); COLOR,URINE YELLOW (YELLOW); KETONES,URINE NEGATIVE (NEGATIVE); LEUKOCYTE ESTERASE ,URINE NEGATIVE (NEGATIVE); NITRITE, URINE NEGATIVE (NEGATIVE); PH,URINE 5.5 (5.0-8.0); PROTEIN,URINE TRACE mg/dl (NEGATIVE); UGLUCOSE NEGATIVE (NEGATIVE)
[2018-12-21 18:56] LABS: APPEARANCE,URINE HAZY (CLEAR)
[2018-12-21 18:57] LABS: BACTERIA,URINE Rare /HPF (None Seen); SQUAMOUS EPITHELIAL CELL,UR Rare /HPF (None Seen); URINE AMORPHOUS URATE Moderate /HPF (None Seen); WBC,URINE 0-2 /HPF (0-3)
--- NOTE | 2018-12-21 19:24 | NUR ---
HEALTHCARE ADMINISTRATOR NOTE ADMITTED PT FROM ER, INTUBATED 7.5, PT ON BILATERAL SOFT WRIST RESTRAINTS, APPEARED A BIT DROWSY, SR ON MONITOR, TOLERATING VENT SETTINGS, DECKER TO GRAVITY DRAINING CLEAR, CONCENTRATED URINE. BILATERAL HANDS IV SITES C/D/I/PATENT, NO S/O INFILTRATION/PHLEBITIS OBSERVED UPON FLUSHING. DR JESUS INFORMED ABOUT CX SHOWING ETT 7.5 CM ABOVE JUSTIN, PER NALINI RT NO ORDERS FROM ER PHYSICIAN TO ADJUST. PER DR. JESUS PUSH TUBE IN 3 CM. NALINI RT CARRIED OUT ORDER AND CHEST X-RAY ORDERED TO VERIFY PLACEMENT. NO REPORT AVAILABLE AT THIS TIME, ENDORSED TO HIREN NIXON FOR F/U. TROPONIN TRENDING UP, DR. JESUS INFORMED NO CHANGE IN PLAN OF CARE RECOMMENDED. PT'S CARE ENDORSED TO MARY FOR CONTINUITY OF CARE, BED IN LOW AND LOCKED POSITION, CALL LIGHT WITHIN REACH, HEAD OF BED ELEVATED.
[2018-12-21] MEDS: IPRATROPIUM NEB FS 0.5 MG/2.5 ML AMPUL.NEB NEB SCH ×2 (19:32→23:05)
[2018-12-21] MEDS: ALBUTEROL FS 2.5 MG/0.5 ML VIAL.NEB NEB SCH ×2 (19:32→23:05)
[2018-12-21] MEDS: MEROPENEM 500 MG in IV NS 0.9% 100 ML IV SCH (19:57)
--- NOTE | 2018-12-21 20:03 | NUR ---
RECEIVED PT INTUBATED, 7.5 ETT SECURED AT 24CM AT THE LIP VIA ANCHOR FAST. NO RESP DISTRESS. TOLERATING VENT SETTINGS. SX'D FOR LARGE AMT OF THICK WHITE SECRETIONS. ETT CUFF TRANSITION TEACHER. VENT ALARMS SET AND AUDIBLE. AMBU BAG AT BEDSIDE. VENT PLUGGED INTO RED OUTLET. WILL CONTINUE TO MONITOR. Addendum: 12/21/18 at 2006 by MELLY JASMINE RT Amended: Links added.
--- NOTE | 2018-12-21 22:30 | NUR ---
PAYROLL PROCESSOR NOTES OGT INSERTED, AUSCULTATED TO VERIFY PROPER PLACEMENT, CONFIRMED PROPER PLACEMENT WITH NURSE BERRIOS.
--- NOTE | 2018-12-21 22:54 | NUR ---
POWER TECHNICIAN NOTES CXR READING SHOWS THAT THE ET-TUBE IS NOW 7.7CM ABOVE THE JUSTIN. DISCUSSED FINDINGS/CXR RESULTS WITH RT CAMI, WHOM STATES THAT THETUBE SHOULD BE IN PROPER PLACEMENT, PATIENT IS GETTING HIS VOLUMES, AND IS NOT IN RESPIRATORY DISTRESS. CALLED AND SPOKE TO DR KENT TO DISCUSS CXR RESULTS AND RT INPUT. PER DR KENT, NO NEW ORDERS AT THIS TIME. WILL CONTINUE TO CLOSELY MONITOR THE PATIENT
--- NOTE | 2018-12-21 23:50 | NUR ---
NURSING SPECIALIST NOTES ACTUAL WEIGHT 188 LBS OR 85KG. DIPRIVAN GTT ADJUSTED TO PROPER WEIGHT BASED SETTINGS, WILL MONITOR CLOSELY.
[2018-12-22] VITALS (40 sets, daily range): BP systolic 108–178; BP diastolic 39–103
[2018-12-22] MEDS: PROPOFOL 100 ML IV PRN ×4 (01:17→11:04)
[2018-12-22] MEDS: ALBUTEROL FS 2.5 MG/0.5 ML VIAL.NEB NEB SCH ×6 (03:31→23:45)
[2018-12-22] MEDS: IPRATROPIUM NEB FS 0.5 MG/2.5 ML AMPUL.NEB NEB SCH ×6 (03:31→23:45)
[2018-12-22 04:58] LABS: BASOPHILS % (AUTO) 0.1 % (0.0-2.0); HEMATOCRIT 46 % (39-51); HEMOGLOBIN 15.2 g/dL (13.5-17.5); LYMPHOCYTES # (AUTO) 0.5 /CMM (0.8-4.8); LYMPHOCYTES % (AUTO) 4.6 % (20.0-44.0); MEAN CORPUSCULAR HGB CONC 33 g/dl (31.0-36.0); MEAN CORPUSCULAR VOLUME 101 fL (80-96); MONOCYTES # (AUTO) 0.6 /CMM (0.1-1.30); MONOCYTES % (AUTO) 5.1 % (2.0-12.0); NEUTROPHILS # (AUTO) 10.7 /CMM (1.8-8.9); NEUTROPHILS % (AUTO) 90.2 % (43.0-81.0); PLATELET COUNT (AUTO) 144 /CMM (150-450); RED BLOOD CELL COUNT(AUTO) 4.58 MIL/uL (4.5-6.0); WHITE BLOOD COUNT (AUTO) 11.9 K/uL (4.3-11.0)
[2018-12-22 05:06] LABS: ALANINE AMINOTRANSFERASE 17 U/L (12-78); ALBUMIN 2.5 g/dL (3.4-5.0); ALKALINE PHOSPHATASE 76 U/L (46-116); ASPARTATE AMINOTRANSFERASE 15 U/L (15-37); B-TYPE NATRIURETIC PEPTIDE 5074 PG/ML (0-125); BILIRUBIN,TOTAL 0.7 mg/dL (0.2-1.0); CALCIUM, SERUM 8.3 mg/dL (8.5-10.1); CARBON DIOXIDE 28 mmol/L (21-32); CHLORIDE 111 mmol/L (98-107); GLUCOSE 174 mg/dL (74-106); MAGNESIUM 2.1 mg/dL (1.8-2.4); PHOSPHORUS 1.9 mg/dL (2.5-4.9); POTASSIUM 4.6 mmol/L (3.5-5.1); SODIUM SERUM 144 mmol/L (136-145); TOTAL PROTEIN, SERUM 6.8 g/dL (6.4-8.2); UREA NITROGEN, BLOOD 47 mg/dL (7-18)
[2018-12-22 05:27] LABS: CHOLESTEROL 108 mg/dL (<200); HDL CHOLESTEROL 42 mg/dL (40-60); LDL 52 mg/dL (0-99); THYROID STIMULATING HORMONE 0.227 uIU/mL (0.358-3.74); TRIGLYCERIDES 144 mg/dL (30-150)
[2018-12-22] MEDS ORDERED: PROPOFOL 100 ML IV PRN (07:30)
[2018-12-22] MEDS ORDERED: ETOMIDATE 2 MG/ML VIAL IV ONE (08:01)
[2018-12-22] MEDS ORDERED: ROCURONIUM BROMIDE 50 MG/5 ML IV ONE (08:01)
[2018-12-22] MEDS: methylPREDNISolone SOD SUCC 40 MG/ML VIAL IV SCH ×3 (08:08→17:29)
[2018-12-22] MEDS: MEROPENEM 500 MG in IV NS 0.9% 100 ML IV SCH ×2 (08:08→20:29)
[2018-12-22 08:55] LABS: ABG BASE EXCESS 2.1 mmol/L; ABG OXYGEN SATURATION 96.2 % (92.0-98.5); ABG PCO2 40.9 mmHg (35.0-45.0); ABG PH 7.431 (7.350-7.450); ABG PO2 85.9 mmHg (75.0-100.0); AaDO2 224.6 mmHg; COHb 0.1 % (0.5-1.5); MetHb 0.6 % (0.0-1.5); O2Hb 95.5 % (94.0-97.0); PEEP,BG 5 cm H2O; SITE, ABG Right Radial; VT, ABG 500 mL
--- NOTE | 2018-12-22 09:00 | NUR ---
Pt seen & examined by Dr. Zuñiga. ABG reviewed by MD barragan/ JO ANN at this time.
--- NOTE | 2018-12-22 09:24 | NUR ---
WOUND CARE CONSULT: PT SEEN FOR SKIN ASSESSMENT. PT PRESENTS WITH INTACT SKIN, INTUBATED AT THIS TIME. RECOMMENDATIONS MADE FOR SKIN PROTECTION. DISCUSSED WITH NURSING STAFF. WILL SEE PRN. GUTIÉRREZ IN AGREEMENT WITH PLAN OF CARE. Addendum: 12/22/18 at 09 by ASHWIN ONTIVEROS WNDNU PT ON FIRST STEP [facility].
--- NOTE | 2018-12-22 09:30 | NUR ---
Pt seen & examined by Dr. Miller. Per , may start GTF. Dietary consult ordered.
[2018-12-22] MEDS ORDERED: DC PROPOFOL WHEN EXTUBATED XX PRN (11:00)
[2018-12-22] MEDS ORDERED: Sodium Phosphate 15 MMOL in IV D5W 250 ML IV ONE (13:00)
[2018-12-22] MEDS ORDERED: GLUCERNA 1.2 1,000 ML BOTTLE NG PRN (13:00)
--- NOTE | 2018-12-22 15:00 | NUR ---
Per Dr. Zuñiga, start titrating off sedation, will do weaning today - SIMV 4, PS 15, PEEP 5 at 4pm. ABG 30 mins after. RT made aware.
--- NOTE | 2018-12-22 16:40 | NUR ---
Pt extubated per Dr. Zuñiga's order c/o RT. Pt tolerated the procedure well. Placed on NC at 4lpm.
[2018-12-22 16:46] LABS: ABG BASE EXCESS 3.5 mmol/L; ABG OXYGEN SATURATION 95.8 % (92.0-98.5); ABG PCO2 42.3 mmHg (35.0-45.0); ABG PO2 80.5 mmHg (75.0-100.0); AaDO2 228.4 mmHg; COHb 0.3 % (0.5-1.5); MetHb 0.6 % (0.0-1.5); O2Hb 94.9 % (94.0-97.0); PEEP,BG 5 cm H2O; SITE, ABG Right Radial
--- NOTE | 2018-12-22 16:48 | NUR ---
RT Patient extubated and placed on 4LNC per Dr. Zuñiga. Pt tolerating well. Addendum: 12/22/18 at 1745 by NICHOLE VIVAS RT Amended: Links added.
[2018-12-22] MEDS: VANCOMYCIN 1 GM in IV D5W 250 ML IV SCH (17:29)
--- NOTE | 2018-12-22 18:20 | NUR ---
EHS ENGINEER CLOSING NOTES: Pt resting comfortably on his bed, s/p extubation, tolerating NC at 4lpm - sating 97%. Pt is A/O x 1, confused but easily reoriented. SR on telemonitor. IV line access on LH G20 & RFA G20 both patent & intact w/ no s/sx of infection/infiltration noted. FC draining well to BSB w/ yellowish UOP. Safety precaution kept in place at all times w/ bed in lowest & locked pos. Call light placed w/in reach. Will endorse to PM RN for ROSENDA. Addendum: 12/22/18 at 1846 by GHAZAL MARIN RN Addendum: ABG relayed to Dr. Zuñiga w/ orders ABG in AM.
[2018-12-22 18:38] LABS: ABG BASE EXCESS 2.9 mmol/L; ABG OXYGEN SATURATION 93.5 % (92.0-98.5); ABG PCO2 51.4 mmHg (35.0-45.0); ABG PH 7.372 (7.350-7.450); ABG PO2 74.4 mmHg (75.0-100.0); AaDO2 122.7 mmHg; COHb 0.1 % (0.5-1.5); MetHb 0.5 % (0.0-1.5); O2Hb 92.9 % (94.0-97.0); SITE, ABG Right Radial; VENT MODE, BG 4LNC
--- NOTE | 2018-12-22 19:30 | NUR ---
OPTICAL FABRICATOR INITIAL SHIFT NOTES RECEIVED PATIENT IN BED, AWAKE, ALERT AND ORIENTED X1, CONFUSED, REORIENTED AND REDIRECTED TO REALITY. DISCUSSED PLAN OF CARE WITH PATIENT, WITH VERBALIZATION OF UNDERSTANDING AT THIS TIME. BEDSIDE DEPUTY COURT CLERK READS SINUS RHYTHM, HR 81 BPM AT THIS TIME. ON O2 VIA NC @ 4LPM VIA NC, TOLERATING WELL, NO S/S OF RESPIRATORY DISTRESS NOTED. IV SITES PATENT AND INTACT, FLUSHED WITH NS, NO PHLEBITIS OR INFILTRATION NOTED. DECKER CATHETER PATENT AND INTACT, DRAINING PINK/YELLOW URINE VIA GRAVITY. WILL CONTINUE TO CLOSELY MONITOR
[2018-12-22] MEDS: ENOXAPARIN SODIUM 30 MG/0.3 ML DISP.SYRIN SQ SCH (20:30)
--- NOTE | 2018-12-22 23:05 | NUR ---
ASSISTANT GOLF PROFESSIONAL NOTES PATIENT ENDORSED TO NURSE DELVALLE FOR CONTINUITY OF CARE
--- NOTE | 2018-12-22 23:05 | NUR ---
SECONDARY TEACHER NOTE PATIENT REPORT GIVEN BEDSIDE. PATIENT IN BED A/O X 1. PATIENT CONFUSED AMIABLE AND EASILY DIRECTABLE. PATIENT DENIES CHEST SOB AT THIS TIME. PATIENT BREATHING ON 4L NC. TOLERATING WELL. PATIENT DENIES CHEST PAIN OR ANY DISCOMFIT AT THIS TIME. PATIENT HAS TO IV PATENT AND INTACT L HAND 20 G AND RFA 20G. NO S/S OF INFECTION AND INFILTRATION. SAFETY PRECAUTIONS IN PLACE. BED IN LOWEST LOCKED POSITION SIDE RAILS UP X2. RN WILL CONTINUE TO MONITOR FOR CHANGES.
[2018-12-23] VITALS (13 sets, daily range): BP systolic 116–151; BP diastolic 72–93
[2018-12-23] MEDS: ALBUTEROL FS 2.5 MG/0.5 ML VIAL.NEB NEB SCH ×6 (03:18→23:30)
[2018-12-23] MEDS: IPRATROPIUM NEB FS 0.5 MG/2.5 ML AMPUL.NEB NEB SCH ×6 (03:18→23:29)
--- NOTE | 2018-12-23 04:00 | NUR ---
SALES AND BUSINESS DEVELOPMENT MANAGER NOTE PATIENT REFUSED BED BATH AT THIS TIME
[2018-12-23 04:44] LABS: HEMATOCRIT 43 % (39-51); LYMPHOCYTES # (AUTO) 0.3 /CMM (0.8-4.8); LYMPHOCYTES % (AUTO) 2.3 % (20.0-44.0); MEAN CORPUSCULAR HGB CONC 33 g/dl (31.0-36.0); MEAN CORPUSCULAR VOLUME 100 fL (80-96); MONOCYTES # (AUTO) 0.6 /CMM (0.1-1.30); MONOCYTES % (AUTO) 4.5 % (2.0-12.0); NEUTROPHILS # (AUTO) 12.3 /CMM (1.8-8.9); NEUTROPHILS % (AUTO) 93.2 % (43.0-81.0); PLATELET COUNT (AUTO) 169 /CMM (150-450); RED BLOOD CELL COUNT(AUTO) 4.25 MIL/uL (4.5-6.0); WHITE BLOOD COUNT (AUTO) 13.2 K/uL (4.3-11.0)
[2018-12-23 05:06] LABS: ALANINE AMINOTRANSFERASE 17 U/L (12-78); ALBUMIN 2.4 g/dL (3.4-5.0); ALKALINE PHOSPHATASE 70 U/L (46-116); ASPARTATE AMINOTRANSFERASE 12 U/L (15-37); BILIRUBIN,TOTAL 0.5 mg/dL (0.2-1.0); CALCIUM, SERUM 8.4 mg/dL (8.5-10.1); CARBON DIOXIDE 31 mmol/L (21-32); CHLORIDE 113 mmol/L (98-107); CREATININE 1.3 mg/dL (0.6-1.3); GLUCOSE 136 mg/dL (74-106); MAGNESIUM 2.3 mg/dL (1.8-2.4); PHOSPHORUS 4.3 mg/dL (2.5-4.9); POTASSIUM 4.4 mmol/L (3.5-5.1); SODIUM SERUM 149 mmol/L (136-145); TOTAL PROTEIN, SERUM 6.6 g/dL (6.4-8.2); UREA NITROGEN, BLOOD 38 mg/dL (7-18)
--- NOTE | 2018-12-23 06:57 | NUR ---
PHYSICAL CHEMIST NOTE PATIENT TOLERATED THE NIGHT WELL. NO S/S OF RESP DISTRESS AT THIS TIME. PATIENT TOLERATES 4L NC WELL NO S/S OF RESP DISTRESS. PATIENT IV PATENT AND INTACT NO S/S OF INFECTION/INFILTRATION/PHELBITIS. SAFETY PRECAUTIONS IN PLACE. SIDE RAILS UP X 2. BED IN LOWEST LOCKED POSITION. PATIENT MADE AWARE OF PLANS FOR THE DAY. RN WILL ENDORSE TO AM POC FOR ROSENDA.
[2018-12-23] MEDS: MEROPENEM 500 MG in IV NS 0.9% 100 ML IV SCH ×2 (07:00→20:41)
--- NOTE | 2018-12-23 07:45 | NUR ---
RN did bedside swallow evaluation, no sign of dysphagia noted. MD made aware.
--- NOTE | 2018-12-23 08:00 | NUR ---
Pt seen & examined by Dr. Miller, updated about pt status. Per MD, may start on cardiac soft diet, do PT evaluation & may downgrade to Tele.
[2018-12-23] MEDS: methylPREDNISolone SOD SUCC 40 MG/ML VIAL IV SCH ×3 (08:26→16:10)
--- NOTE | 2018-12-23 10:00 | NUR ---
WOOD DRILLING MACHINE OPERATORREMELT SUGAR BOILER NOTES: Pt transferred to Tele 115/2 as ordered. Pt remains A/O x 1, confused at times but easily reorients. SR on telemonitor. IV line access kept patent & intact w/ no s/sx of infection/infiltration noted. FC draining to BSB w/ yellowish UOP. All belongings sent w/ pt. Safety precaution kept in place at all times. Pt has been evaluated by [facility]. Report given to Louise MARADIAGA. Pt left the ICU in stable condition. No concerns/issues identified upon transfer.
[2018-12-23] MEDS: LACTOBACILLUS RHAMNOSUS GG 1 EACH CAP.SPRINK PO SCH (16:08)
[2018-12-23] MEDS: VANCOMYCIN 1 GM in IV D5W 250 ML IV SCH (16:10)
--- NOTE | 2018-12-23 18:56 | NUR ---
RN CLOSING NOTES PT AWAKE AND RESTING IN BED. NO COMPLAINTS OF PAIN, SOB OR DISTRESS AT THIS TIME. PT TELE MONITORED AT SINUS RHYTHM. PT HAS LEFT HAND IV #20 INTACT. PT HAS A DECKER CATHETER INTACT AND PATENT. SAFETY PRECAUTIONS IN PLACE, BED IN LOWEST LOCKED POSITION, X2 SIDE RAILS UP AND CALL LIGHT WITHIN REACH. WILL ENDORSE TO SURFACING MACHINE OPERATOR NURSE FOR CONTINUITY OF CARE.
--- NOTE | 2018-12-23 19:50 | NUR ---
RN NOTES RECEIVED PT AWAKE AND RESTING IN BED. NO COMPLAINTS OF PAIN, SOB OR DISTRESS AT THIS TIME. PT TELE MONITORED WITH SINUS RHYTHM. PT HAS LEFT HAND IV #20 INTACT. PT HAS A DECKER CATHETER INTACT AND PATENT DRAINING ON GRAVITY. SAFETY PRECAUTIONS IN PLACE, BED IN LOWEST LOCKED POSITION, X2 SIDE RAILS UP AND CALL LIGHT WITHIN REACH. WILL CONTINUE TO MONITOR PATIENT CLOSELY.
[2018-12-23] MEDS: ENOXAPARIN SODIUM 30 MG/0.3 ML DISP.SYRIN SQ SCH (20:41)
[2018-12-23] MEDS: ACETAMINOPHEN 325 MG TABLET PO PRN (20:42)
[2018-12-24] VITALS: BP 130/71
[2018-12-24] MEDS: ALBUTEROL FS 2.5 MG/0.5 ML VIAL.NEB NEB SCH ×6 (03:53→23:16)
[2018-12-24] MEDS: IPRATROPIUM NEB FS 0.5 MG/2.5 ML AMPUL.NEB NEB SCH ×6 (03:53→23:16)
[2018-12-24 04:00] VITALS: BP 136/90
[2018-12-24 06:42] LABS: HEMATOCRIT 41 % (39-51); HEMOGLOBIN 13.6 g/dL (13.5-17.5); LYMPHOCYTES # (AUTO) 0.4 /CMM (0.8-4.8); LYMPHOCYTES % (AUTO) 3.2 % (20.0-44.0); MEAN CORPUSCULAR HGB CONC 33 g/dl (31.0-36.0); MEAN CORPUSCULAR VOLUME 99 fL (80-96); MONOCYTES # (AUTO) 0.7 /CMM (0.1-1.30); MONOCYTES % (AUTO) 5.5 % (2.0-12.0); NEUTROPHILS # (AUTO) 11.8 /CMM (1.8-8.9); NEUTROPHILS % (AUTO) 91.3 % (43.0-81.0); PLATELET COUNT (AUTO) 179 /CMM (150-450); RED BLOOD CELL COUNT(AUTO) 4.18 MIL/uL (4.5-6.0); WHITE BLOOD COUNT (AUTO) 12.9 K/uL (4.3-11.0)
[2018-12-24 06:56] LABS: CARBON DIOXIDE 32 mmol/L (21-32); CHLORIDE 111 mmol/L (98-107); CREATININE 1.1 mg/dL (0.6-1.3); GLUCOSE 152 mg/dL (74-106); MAGNESIUM 2.4 mg/dL (1.8-2.4); PHOSPHORUS 4.2 mg/dL (2.5-4.9); SODIUM SERUM 148 mmol/L (136-145); UREA NITROGEN, BLOOD 39 mg/dL (7-18)
--- NOTE | 2018-12-24 07:47 | NUR ---
RN OPENING NOTES PATIENT RECEIVED AWAKE IN BED, AOX2. PATIENT DID NOT REPORT ANY PAIN OR DISTRESS. 20 G SALINE LOCK ON RIGHT ARM, PATENT. PATIENT HAS A NASAL CANULA DELIVERING 4 L OF O2. DECKER CATHETER IS PATENT, NO KINKS. TELE READING SHOWING NORMAL SR. SAFETY MEASURES IMPLEMENTED, BED IN LOWEST AND LOCKED POSITION. CALL LIGHT WITHIN REACH. WILL CONTINUE TO MONITOR.
[2018-12-24 08:00] VITALS: BP 157/96
[2018-12-24] MEDS: methylPREDNISolone SOD SUCC 40 MG/ML VIAL IV SCH ×2 (08:58→13:54)
[2018-12-24] MEDS: MEROPENEM 500 MG in IV NS 0.9% 100 ML IV SCH (08:58)
[2018-12-24] MEDS: LACTOBACILLUS RHAMNOSUS GG 1 EACH CAP.SPRINK PO SCH ×2 (08:59→16:49)
--- NOTE | 2018-12-24 10:21 | NUR ---
RN NOTES TELE DURING ROUNDS DR JESUS ORDERED THE D/C OF THE F/C AND TO AMBULATE ON ROOM AIR TO ASSESS OXYGEN SATURATION. PATIENT TOLERATED THE REMOVAL OF THE DECKER WELL, URINE WAS CLEAR AND YELLOW WITH OUTPUT OF 500 ML AT THE TIME OF REMOVAL. PATIENT WAS GIVEN A URINAL WITH INSTRUCTIONS ON HOW TO USE. DURING AMBULATION WITHOUT O2 PATIENT'S OXYGEN SATURATION AVERAGED AT 85 %. PATIENT WAS RETURNED TO BED AND APPLIED 4L OF OXYGEN VIA NC. CALL LIGHT ON BEDSIDE, WILL CONTINUE TO MONITOR FOR ANY CHANGES.
--- NOTE | 2018-12-24 11:51 | NUR ---
RN NOTES PHARMACY REQUESTED HOME MED RECON. SPOKE WITH DR. HA AND HE WANTS TO CONTINUE COREG 3.125 MG BID, ASPIRIN 81 MG, ZYPREXA 10 MG BID, FINASTERIDE 5 MG DAILY, FLOMAX 0.4 MG PO HS, LIPITOR 80 MG HS. WILL CONTINUE TO MONITOR. HOME MEDS FAXED TO PHARMACY.
[2018-12-24] MEDS: VANCOMYCIN 1 GM in IV D5W 250 ML IV SCH (12:38)
[2018-12-24 16:00] VITALS: BP 155/94
[2018-12-24] MEDS: OLANZAPINE 10 MG TABLET PO SCH (16:49)
[2018-12-24] MEDS: CARVEDILOL 3.125 MG TABLET PO SCH (16:50)
[2018-12-24] MEDS: CEFEPIME 2 GM in IV D5W 100 ML IV SCH (18:00)
[2018-12-24] MEDS: ACETAMINOPHEN 325 MG TABLET PO PRN (18:21)
--- NOTE | 2018-12-24 18:59 | NUR ---
RN CLOSING NOTES PATIENT IS RESTING COMFORTABLY IN HIS BED. HE DOES NOT SHOW NO S/SX OF PAIN OR DISTRESS. HE IS RECEIVING 3L OF O2 VIA NC. BED IS IN LOWEST AND LOCKED POSITION. PATIENT'S URINAL HAS BEEN EMPTIED AND IS AT BEDSIDE. PATIENT'S CALL LIGHT IS WITHIN REACH. WILL ENDORSE TO PM NURSE AT THE END OF THE SHIFT.
--- NOTE | 2018-12-24 19:44 | NUR ---
RN OPENING NOTES PATIENT ISIN HIS BED. HE DOES NOT SHOW NO S/SX OF PAIN OR DISTRESS. HE IS RECEIVING 3L OF O2 VIA NC. BED IS IN LOW LOCKED POSITION. PATIENT'S CALL LIGHT IS WITHIN REACH. WILL CARRY OUT PLAN OF CARE AND CONT TO MONITER.
[2018-12-24 20:00] VITALS: BP 140/91
[2018-12-24] MEDS: ENOXAPARIN SODIUM 30 MG/0.3 ML DISP.SYRIN SQ SCH (20:40)
[2018-12-24] MEDS ORDERED: CEFEPIME 1 GM in IV D5W 50 ML IV SCH (21:00)
[2018-12-24] MEDS ORDERED: TAMSULOSIN 0.4 MG CAP.SR.24H PO SCH (22:00)
[2018-12-25] VITALS: BP 140/91
[2018-12-25] MEDS: IPRATROPIUM NEB FS 0.5 MG/2.5 ML AMPUL.NEB NEB SCH ×3 (03:30→11:01)
[2018-12-25] MEDS: ALBUTEROL FS 2.5 MG/0.5 ML VIAL.NEB NEB SCH ×3 (03:30→11:01)
[2018-12-25] MEDS: CEFEPIME 2 GM in IV D5W 100 ML IV SCH (05:13)
--- NOTE | 2018-12-25 06:36 | NUR ---
RN CLOSING NOTES PATIENT IS RESTING COMFORTABLY IN HIS BED. HE DOES NOT SHOW NO S/SX OF PAIN OR DISTRESS. HE IS RECEIVING 3L OF O2 VIA NC. BED IS IN LOWEST AND LOCKED POSITION. . PATIENT'S CALL LIGHT IS WITHIN REACH. WILL ENDORSE TO AM NURSE SHIFT.
[2018-12-25 07:12] LABS: CALCIUM, SERUM 8.1 mg/dL (8.5-10.1); CARBON DIOXIDE 33 mmol/L (21-32); CHLORIDE 110 mmol/L (98-107); CREATININE 1.1 mg/dL (0.6-1.3); GLUCOSE 137 mg/dL (74-106); SODIUM SERUM 145 mmol/L (136-145); UREA NITROGEN, BLOOD 35 mg/dL (7-18)
[2018-12-25 08:00] VITALS: BP 117/81
[2018-12-25] MEDS: OLANZAPINE 10 MG TABLET PO SCH (08:16)
[2018-12-25] MEDS: LACTOBACILLUS RHAMNOSUS GG 1 EACH CAP.SPRINK PO SCH (08:16)
[2018-12-25 08:17] VITALS: BP 117/81
[2018-12-25] MEDS: CARVEDILOL 3.125 MG TABLET PO SCH (08:17)
[2018-12-25] MEDS ORDERED: methylPREDNISolone SOD SUCC 40 MG/ML VIAL IV SCH (09:00)
[2018-12-25] MEDS ORDERED: FINASTERIDE (5 MG) 5 MG TABLET PO SCH (09:00)
[2018-12-25] MEDS ORDERED: ASPIRIN EC 81 MG TABLET.DR PO SCH (09:00)
--- NOTE | 2018-12-25 13:31 | NUR ---
RN D/C NOTE RECEIVED DC ORDER TO SNF. PATENT IN STABLE CONDITION. 4L O2 VIA NC, SPO2 95%. NO ACUTE DISTRESS OR SOB NOTED. PATIENT TAKEN OUT VIA GURNEY BY AMBULANCE PERSONNEL @1331. [facility] PRESCRIPTIONS IN FOLDER. NO WOUND PICTURES TO BE TAKEN. BELONGINGS WITH PATIENT (NO SHOES). NO FAMILY MEMBERS/FRIENDS PER PATIENT TO BE NOTIFIED. R WRIST 20G IV PATENT AND INTACT, DUE TO IV ABX PX
[2018-12-25] MEDS ORDERED: ATORVASTATIN 40 MG TABLET PO SCH (22:00)
== END 2018-12-25 13:31 | DRG 871 ==
LOC: ER 13:18 → ICU 15:52 → TELE1 12-23 09:40 → MEDSG1 12-24 10:30
PROVIDERS: ADMIT Internal Medicine; ATTEND Internal Medicine
PROC: 5A1945Z Respiratory Ventilation, 24-96 Consecutive Hours (ICD-10-PCS; principal; 2018-12-21)
PROC: 0BH18EZ Insertion of Endotracheal Airway into Trachea, Via Natural or Artificial Opening Endoscopic (ICD-10-PCS; 2018-12-21)
DX: A41.9 Sepsis, unspecified organism (principal); J96.01 Acute respiratory failure with hypoxia; J15.6 Pneumonia due to other Gram-negative bacteria; G93.41 Metabolic encephalopathy; N17.0 Acute kidney failure with tubular necrosis; I50.33 Acute on chronic diastolic (congestive) heart failure; E43 Unspecified severe protein-calorie malnutrition; I21.A1 Myocardial infarction type 2; J69.0 Pneumonitis due to inhalation of food and vomit; J96.22 Acute and chronic respiratory failure with hypercapnia; J44.1 Chronic obstructive pulmonary disease with (acute) exacerbation; J44.0 Chronic obstructive pulmonary disease with (acute) lower respiratory infection; E87.0 Hyperosmolality and hypernatremia; I13.0 Hypertensive heart and chronic kidney disease with heart failure and stage 1 through stage 4 chronic kidney disease, or unspecified chronic kidney disease; E87.2 Acidosis; D63.8 Anemia in other chronic diseases classified elsewhere; E78.5 Hyperlipidemia, unspecified; N40.0 Benign prostatic hyperplasia without lower urinary tract symptoms; Z68.25 Body mass index [BMI] 25.0-25.9, adult; Z86.73 Personal history of transient ischemic attack (TIA), and cerebral infarction without residual deficits; F20.9 Schizophrenia, unspecified; E87.5 Hyperkalemia; I95.9 Hypotension, unspecified; N18.9 Chronic kidney disease, unspecified; F03.90 Unspecified dementia, unspecified severity, without behavioral disturbance, psychotic disturbance, mood disturbance, and anxiety
CPT/HCPCS: 31720; 36415; 36600; 70450-TC; 71045-TC; 80048-TC; 80053-TC; 80061-TC; 80076-TC; 80202-TC; 80305; 81000-TC; 82140-TC; 82803-TC; 83605-TC; 83735-TC; 83880; 84100-TC; 84439-TC; 84443-TC; 84484-TC; 85025-TC; 85730-TC; 87040-TC; 87070-TC; 87081-TC; 87086-TC; 92526; 92611-TC; 94003-TC; 94640-TC; 94760-TC; 94799-TC; 97110-TC; 97116-TC; 97530-TC; 99082-TC; A4216; A9563; G0378; J0692; J1650; J2185; J2310; J2920; J3370; J3490; J7030; J7050; J7060

== ENCOUNTER 2020-04-30 15:14 | Inpatient (IN) | payer MEDICARE, OTHER ==
[~2020-04-30] VITALS: Ht 175.3 cm; Wt 88.0 kg
[2020-04-30] VITALS (20 sets, daily range): BP systolic 115–165; BP diastolic 54–97
[~2020-04-30 15:14] MED LIST changes: -ASPI-1152 PO; +ASPI-1420 PO; -NICO-677 TP
--- NOTE | 2020-04-30 15:20 | NUR ---
vikas, from [facility], per report, SOB 50% on room air, 98% on non rebreather mask, came in on non-rebreather mask at 15LPM, to ER bed 8, hooked to senior formulation scientist, BP cuff and POX. o2 saturation on rebreather mask at 97%. changed to hosp gown, warm blanket provided. patient aao X 1, awake and responds to voice. Dr Bose at bedside.
--- NOTE | 2020-04-30 15:24 | NUR ---
RT at bedside for ABG
[2020-04-30] MEDS ORDERED: Magnesium 1GM/D5W 100ML PREMIX 200 ML IV ONE (15:30)
[2020-04-30] MEDS ORDERED: IPRATROPIUM NEB FS 0.5 MG/2.5 ML AMPUL.NEB NEB ONE (15:30)
[2020-04-30] MEDS ORDERED: methylPREDNISolone SOD SUCC 125 MG/2ML VIAL IV ONE (15:30)
[2020-04-30] MEDS ORDERED: ALBUTEROL FS 2.5 MG/3 ML VIAL.NEB CONTNEB ONE (15:30)
[2020-04-30 15:33] LABS: ABG BASE EXCESS 9.6 mmol/L; ABG OXYGEN SATURATION 97.6 % (92.0-98.5); ABG PCO2 131.5 mmHg (35.0-45.0); ABG PH 7.143 (7.350-7.450); ABG PO2 113.3 mmHg (75.0-100.0); COHb 2.8 % (0.5-1.5); MetHb 0.2 % (0.0-1.5); O2Hb 94.7 % (94.0-97.0); SITE, ABG Left Radial; VENT MODE, BG NON REBREATHER 15L
[2020-04-30] MEDS ORDERED: methylPREDNISolone SOD SUCC 125 MG/2ML VIAL ONE (15:34)
[2020-04-30] MEDS ORDERED: Magnesium 1GM/D5W 100ML PREMIX 100 ML IV ONE ×2 (15:35)
--- NOTE | 2020-04-30 15:39 | NUR ---
DR MAN, RT AND RN AT BEDSIDE FOR INTUBATION
--- NOTE | 2020-04-30 15:39 | NUR ---
MOVE SHEET SUBMITTED AND CALLED FOR ICU BED.
[2020-04-30] MEDS ORDERED: PROPOFOL 20 ML IV ONE (15:40)
[2020-04-30] MEDS ORDERED: PROPOFOL 100 ML ONE (15:40)
--- NOTE | 2020-04-30 15:50 | NUR ---
RAPID COVID SWAB AND RAPID INFLUENZA SWAB DONE AND SENT TO LAB
[2020-04-30] MEDS ORDERED: NIFE-35 PO (15:57)
[2020-04-30] MEDS ORDERED: ALBU18HF2 IH (15:57)
[2020-04-30] MEDS ORDERED: ACET-2605 PO (15:57)
[2020-04-30] MEDS ORDERED: CHOL200010 PO (15:57)
[2020-04-30] MEDS ORDERED: AMIN30LI2 PO (15:57)
[2020-04-30] MEDS ORDERED: ASPI-1169 PO (15:57)
[2020-04-30] MEDS ORDERED: ALBU1.257 IH (15:57)
[2020-04-30] MEDS ORDERED: PANT40TA2 PO (15:57)
[2020-04-30] MEDS ORDERED: ENAL20TA18 PO (15:57)
[2020-04-30] MEDS ORDERED: PERP8TAB6 PO (15:57)
[2020-04-30] MEDS ORDERED: DOCU250C14 PO (15:57)
[2020-04-30] MEDS ORDERED: FLUT1BLS IH (15:57)
[2020-04-30] MEDS ORDERED: PROPOFOL 200 MG/20 ML VIAL IV ONE (16:00)
--- NOTE | 2020-04-30 16:19 | NUR ---
RT at bedside for suction
[2020-04-30 16:21] LABS: BASOPHILS % (AUTO) 0.3 % (0.0-2.0); HEMATOCRIT 38 % (39-51); LYMPHOCYTES # (AUTO) 0.8 /CMM (0.8-4.8); LYMPHOCYTES % (AUTO) 7.3 % (20.0-44.0); MEAN CORPUSCULAR HGB CONC 32 g/dl (31.0-36.0); MEAN CORPUSCULAR VOLUME 104 fL (80-96); MONOCYTES # (AUTO) 0.5 /CMM (0.1-1.30); MONOCYTES % (AUTO) 4.9 % (2.0-12.0); NEUTROPHILS # (AUTO) 9.5 /CMM (1.8-8.9); NEUTROPHILS % (AUTO) 87.5 % (43.0-81.0); PLATELET COUNT (AUTO) 174 /CMM (150-450); RED BLOOD CELL COUNT(AUTO) 3.63 MIL/uL (4.5-6.0); WHITE BLOOD COUNT (AUTO) 10.8 K/uL (4.3-11.0)
[2020-04-30] MEDS ORDERED: ALBUMIN 25% 50 ML IV ONE (16:26)
--- NOTE | 2020-04-30 16:29 | NUR ---
COVID 19 PCR SWAB DONE AND SENT TO LAB
[2020-04-30] MEDS ORDERED: ALBUMIN 25% 12.5 GM/50 ML BOTTLE IV ONE (16:30)
[2020-04-30] MEDS ORDERED: IV NS 0.9% 500 ML BAG IV ONE (16:30)
[2020-04-30] MEDS ORDERED: IV NS 0.9% 1,000 ML BAG IV ONE (16:30)
[2020-04-30 16:33] LABS: CALCIUM, SERUM 8.9 mg/dL (8.5-10.1); CARBON DIOXIDE 34 mmol/L (21-32); CHLORIDE 109 mmol/L (98-107); CREATININE 1.3 mg/dL (0.6-1.3); GLUCOSE 166 mg/dL (74-106); POTASSIUM 4.9 mmol/L (3.5-5.1); SODIUM SERUM 147 mmol/L (136-145); UREA NITROGEN, BLOOD 28 mg/dL (7-18)
[2020-04-30 16:45] LABS: ALANINE AMINOTRANSFERASE 10 U/L (12-78); ALBUMIN 2.7 g/dL (3.4-5.0); ALKALINE PHOSPHATASE 56 U/L (46-116); ASPARTATE AMINOTRANSFERASE 9 U/L (15-37); B-TYPE NATRIURETIC PEPTIDE 661 PG/ML (0-125); BILIRUBIN,DIRECT 0.1 mg/dL (0.0-0.2); BILIRUBIN,TOTAL 0.4 mg/dL (0.2-1.0); TOTAL PROTEIN, SERUM 6.5 g/dL (6.4-8.2)
--- NOTE | 2020-04-30 16:58 | NUR ---
RT NOTE PATIENT INTUBATED PER MD ORDERS. ET TUBE SIZE#8 23@ LIP, SECURED WITH ANCHOR FAST. EQUAL CHEST RISE WITH EVEN BILATERAL BREATH SOUNDS. VENT PLUGGED IN TO RED OUTLET WITH ORDERED SETTINGS. ALARMS ON AND AUDIBLE. AMBU BAG BY THE BEDSIDE. ET TUBE SX LARGE THICK YELLOW SECRETIONS.
[2020-04-30] MEDS ORDERED: ASPIRIN 300 MG/SUPP.RECT RC ONE ×2 (17:00→17:23)
[2020-04-30 17:05] LABS: BAND % (MANUAL) 1 % (0.0-5.0); LYMPHOCYTES % (MANUAL) 8 % (16-48); MONOCYTES % (MANUAL) 6 % (0-11.0); NEUTROPHILS % (MANUAL) 85 (42-76)
--- NOTE | 2020-04-30 17:09 | NUR ---
URINE SAMPLE COLLECTED VIA DECKER CATHETER. SENT SAMPLE TO LAB
--- NOTE | 2020-04-30 17:10 | NUR ---
panel paged. awaiting hospitalist call back.
--- NOTE | 2020-04-30 17:13 | NUR ---
Jaime alvarado in [facility] - 04/30/20 at 1714 by NANCY icu [id number]
--- NOTE | 2020-04-30 17:14 | NUR ---
icu 251
[2020-04-30 17:18] LABS: ABG BASE EXCESS 2.2 mmol/L; ABG PCO2 54.2 mmHg (35.0-45.0); ABG PH 7.348 (7.350-7.450); AaDO2 351.8 mmHg; PEEP,BG 0 cm H2O; SITE, ABG Right Radial; VT, ABG 550 mL
--- NOTE | 2020-04-30 17:22 | NUR ---
REPORT GIVEN TO KALPESH MARADIAGA OF ICU
--- NOTE | 2020-04-30 17:49 | NUR ---
RT NOTE PT TRANSPORTED TO ICU BED 257. VENT PLUGGED TO RED OUTLET. ALARMS ON AND AUDIBLE. PT TOLERATING WELL. MONITOR THROUGHOUT SHIFT.
[2020-04-30] MEDS ORDERED: NORMAL SALINE FLUSH 10 ML SYR IV PRN (18:00)
[2020-04-30] MEDS ORDERED: ENOXAPARIN SODIUM 40 MG/0.4 ML DISP.SYRIN SQ SCH (18:00)
[2020-04-30] MEDS ORDERED: NOREPINEPHRINE 8 MG in IV NS 0.9% 250 ML IV PRN (18:00)
[2020-04-30] MEDS ORDERED: ACETAMINOPHEN 325 MG TABLET PO PRN (18:00)
[2020-04-30] MEDS ORDERED: ONDANSETRON HCL/PF 4 MG/2 ML VIAL IVP PRN (18:00)
[2020-04-30] MEDS ORDERED: ACETAMINOPHEN 650 MG/SUPP.RECT RC PRN (18:00)
--- NOTE | 2020-04-30 18:50 | NUR ---
RN NOTE 175: Admitted 74 y/o male patient from ED for Dx Hypercarbic RF, COPD exacerbation, NSTEMI. With ETT 8.0/23 lipline, AC 20, 550, 50%, +5. Sedated on Diprivan, @ 35mcg. VSS. Jalloh cath intact. 2 PIVs intact. Skin assessment rendered with Kira MARADIAGA, intact. AFib on the monitor 90-100's, also in ER EKG, made Stephanie REGISTRATION REPRESENTATIVE aware, said will order AC. Placed on isolation prec for Covid PCR pending. Noted patient awake, placed Diprivan on 40mcg. SBP 110-120's. 1850: No any significant changes noted. Now sedated on 40mcg Diprivan. FITNESS SALES CONSULTANT restraints on for safety. Will endorse to next shift.
[2020-04-30 19:06] LABS: C-REACTIVE PROTEIN 11.9 mg/dL (0.0-0.9)
[2020-04-30] MEDS: PROPOFOL 100 ML IV PRN ×2 (19:13→22:06)
--- NOTE | 2020-04-30 19:27 | NUR ---
SAFETY PATROL OFFICER. INITIAL ASSESSMENT. RECEIVED THE PT REST ON THE BED. ORALLY INTUBATED. SEDATED WITH DIPRIVAN ETT #8,AC 20,LIP 23,TV 550,FIO2 50%,PEEP 5. SAT 98%. NO ACUTE DISTRESS NOTED. SPIRITUAL MINISTER SHOWING A FIB. IV RT AND LT HAND DIPRIVAN 45MCG/KG/MIN. HOB ELEVATED. RT NARE NGT CLAMPED. FC PATENT. URINE DRAINING. BRIAN SOFT WRIST RESTRAINT CHECKED AND RELEASED. NO INJURY OR REDNESS NOTED. WILL CONTINUE TO MONITOR VITALS.
[2020-04-30] MEDS: IV NS 0.9% 250 ML IV PRN (20:43)
[2020-04-30] MEDS: IPRATROPIUM BROMIDE 14 GM INHALER (or 12.9 GM) IH SCH (20:58)
[2020-04-30] MEDS ORDERED: NORMAL SALINE FLUSH 10 ML SYR IV SCH (21:00)
[2020-04-30] MEDS: ATORVASTATIN 40 MG TABLET PO SCH (21:03)
[2020-04-30] MEDS: TAMSULOSIN 0.4 MG CAP.SR.24H PO SCH (21:04)
[2020-04-30] MEDS: OLANZAPINE 10 MG TABLET PO SCH (21:04)
[2020-04-30] MEDS: ALBUTEROL SULFATE 8 GM HFA.AER.AD IH SCH (21:12)
[2020-04-30] MEDS ORDERED: AZITHROMYCIN 500 MG VIAL ONE (21:15)
[2020-04-30] MEDS: AZITHROMYCIN 500 MG in IV D5W 250 ML IV SCH (21:22)
--- NOTE | 2020-04-30 22:57 | NUR ---
curriculum and instruction specialist. all due meds scanned and given.
[2020-05-01] VITALS (73 sets, daily range): BP systolic 107–166; BP diastolic 62–99
--- NOTE | 2020-05-01 01:21 | NUR ---
RN DOCUMENT IMPROVEMENT. NO CHANGES, REMAINING SAME VENT SETTINGS TOLERATED WELL
[2020-05-01] MEDS: ALBUTEROL SULFATE 8 GM HFA.AER.AD IH SCH ×7 (01:55→21:40)
[2020-05-01] MEDS: IPRATROPIUM BROMIDE 14 GM INHALER (or 12.9 GM) IH SCH ×6 (01:55→21:39)
[2020-05-01] MEDS: PROPOFOL 100 ML IV PRN ×7 (02:04→22:18)
--- NOTE | 2020-05-01 03:31 | NUR ---
professor of floriculture.oral care. bed bath given. linen changed. remaining same vent setting tolerated well.diprivan 45mcg/kg/min, hob elevated. fc patent. urine draining, iv rt and lt hand. diprivan 45mcg/kg/min. turn and reposition q2h. afebrile. cipriano soft wrist restraint checked and released. no injury or redness noted. will continue to monitor vitals
[2020-05-01 04:39] LABS: BASOPHILS % (AUTO) 0.1 % (0.0-2.0); HEMATOCRIT 41 % (39-51); HEMOGLOBIN 13.5 g/dL (13.5-17.5); LYMPHOCYTES # (AUTO) 0.7 /CMM (0.8-4.8); LYMPHOCYTES % (AUTO) 5.5 % (20.0-44.0); MEAN CORPUSCULAR HGB CONC 33 g/dl (31.0-36.0); MEAN CORPUSCULAR VOLUME 100 fL (80-96); MONOCYTES # (AUTO) 0.3 /CMM (0.1-1.30); MONOCYTES % (AUTO) 2.8 % (2.0-12.0); NEUTROPHILS # (AUTO) 11.4 /CMM (1.8-8.9); NEUTROPHILS % (AUTO) 91.6 % (43.0-81.0); PLATELET COUNT (AUTO) 186 /CMM (150-450); RED BLOOD CELL COUNT(AUTO) 4.11 MIL/uL (4.5-6.0); WHITE BLOOD COUNT (AUTO) 12.4 K/uL (4.3-11.0)
[2020-05-01 04:48] LABS: ALANINE AMINOTRANSFERASE 18 U/L (12-78); ALBUMIN 3.1 g/dL (3.4-5.0); ALKALINE PHOSPHATASE 59 U/L (46-116); ASPARTATE AMINOTRANSFERASE 12 U/L (15-37); BILIRUBIN,TOTAL 0.8 mg/dL (0.2-1.0); CALCIUM, SERUM 8.8 mg/dL (8.5-10.1); CARBON DIOXIDE 30 mmol/L (21-32); CHLORIDE 109 mmol/L (98-107); CREATININE 1.4 mg/dL (0.6-1.3); GLUCOSE 157 mg/dL (74-106); MAGNESIUM 2.5 mg/dL (1.8-2.4); POTASSIUM 4.1 mmol/L (3.5-5.1); SODIUM SERUM 147 mmol/L (136-145); TOTAL PROTEIN, SERUM 6.8 g/dL (6.4-8.2); UREA NITROGEN, BLOOD 29 mg/dL (7-18)
[2020-05-01 04:55] LABS: CHOLESTEROL 96 mg/dL (<200); HDL CHOLESTEROL 35 mg/dL (40-60); LDL 46 mg/dL (0-99); TRIGLYCERIDES 162 mg/dL (30-150)
[2020-05-01 05:09] LABS: PHOSPHORUS 0.7 mg/dL (2.5-4.9)
[2020-05-01 05:18] LABS: THYROID STIMULATING HORMONE 0.045 uIU/mL (0.358-3.74)
--- NOTE | 2020-05-01 06:46 | NUR ---
agricultural purchasing agent, remaining same vent setting tolerated well. sat 98%, no acute distress noted, order booker showing nsr, diprivan 45mcg/kg/min. afebrile. will continue to monitor vitals
[2020-05-01] MEDS ORDERED: Sodium Phosphate 40 MMOL in IV NS 0.9% 250 ML IV SCH (07:00)
[2020-05-01] MEDS: PANTOPRAZOLE 40 MG TABLET.DR PO SCH (07:18)
--- NOTE | 2020-05-01 07:41 | NUR ---
received on 40% fio2 with spo2 97%, no increased WOB noted. Addendum: 05/01/20 at 0741 by SIDDHARTHA GALLAGHER RT Amended: Links added.
[2020-05-01] MEDS ORDERED: NS 0.9% IV SCH (08:00)
[2020-05-01] MEDS ORDERED: SODIUM PHOSPHATE IV SCH (08:00)
[2020-05-01] MEDS ORDERED: APIXABAN 2.5 MG TABLET PO SCH (09:00)
[2020-05-01] MEDS ORDERED: PERPHENAZINE 8 MG PO SCH (09:00)
[2020-05-01] MEDS: PROSTAT (PYXIS) 30 ML UDC PO SCH ×2 (09:00→17:00)
[2020-05-01] MEDS ORDERED: PANTOPRAZOLE 40 MG VIAL IV SCH (09:00)
[2020-05-01] MEDS: ASPIRIN 81 MG TAB.CHEW PO SCH (09:35)
[2020-05-01] MEDS: PERPHENAZINE 2 MG TABLET PO SCH ×2 (09:36→17:23)
[2020-05-01] MEDS: DOCUSATE SODIUM 250 MG CAPSULE PO SCH (09:36)
[2020-05-01] MEDS: CHOLECALCIFEROL 1,000 UNIT TABLET (VIT D3) PO SCH (09:36)
[2020-05-01] MEDS: FINASTERIDE (5 MG) 5 MG TABLET PO SCH (09:36)
[2020-05-01] MEDS: methylPREDNISolone SOD SUCC 40 MG/ML VIAL IV SCH ×2 (09:37→17:23)
[2020-05-01 09:57] LABS: ABG BASE EXCESS 3.8 mmol/L; ABG OXYGEN SATURATION 97.2 % (92.0-98.5); ABG PCO2 28.2 mmHg (35.0-45.0); ABG PH 7.566 (7.350-7.450); ABG PO2 79.7 mmHg (75.0-100.0); AaDO2 173.1 mmHg; MetHb 0.3 % (0.0-1.5); O2Hb 95.9 % (94.0-97.0); SITE, ABG Right Radial
--- NOTE | 2020-05-01 10:10 | NUR ---
VENT CHANGES MADE PER DR HOU. HIREN SUAREZ NOTIFIED. 14, 500, 50% +0 Addendum: 05/01/20 at 1010 by YURI SHERMAN RT Amended: Links added.
[2020-05-01] MEDS: ENOXAPARIN SODIUM 40 MG/0.4 ML DISP.SYRIN SQ SCH (11:30)
--- NOTE | 2020-05-01 17:51 | NUR ---
horticultural nursery assistant prostat not given. called the nutrition no answer.
--- NOTE | 2020-05-01 20:00 | NUR ---
INSEAMER. INITIAL ASSESSMENT. RECEIVED THE PT REST ON THE BED. ORALLY INTUBATED, SEDATED WITH DIPRIVAN. ETT 8,AC 20,LIP 23,TV 550,FIO2 50%,PEEP 5. SAT 98%. NO ACUTE DISTRESS NOTED. YEAST FERMENTATION ATTENDANT SHOWING NSR. IV RT AND LT HAND 18G, DIPRIVAN 50MCG/KG/MIN, BRIAN SOFT WRIST RESTRAINT CHECKED AND RELEASED, NO INJURY OR REDNESS NOTED HOB ELEVATED, FC PATENT, URINE DRAINING, WILL CONTINUE TO MONITOR VITALS.
[2020-05-01] MEDS: TAMSULOSIN 0.4 MG CAP.SR.24H PO SCH (21:47)
[2020-05-01] MEDS: ATORVASTATIN 40 MG TABLET PO SCH (21:47)
[2020-05-01] MEDS: OLANZAPINE 10 MG TABLET PO SCH (21:47)
[2020-05-01] MEDS: AZITHROMYCIN 500 MG in IV D5W 250 ML IV SCH (21:47)
[2020-05-01] MEDS: IV NS 0.9% 250 ML IV PRN (21:48)
[2020-05-02] VITALS (58 sets, daily range): BP systolic 83–151; BP diastolic 36–100
[2020-05-02] MEDS: ALBUTEROL SULFATE 8 GM HFA.AER.AD IH SCH ×6 (01:41→21:08)
[2020-05-02] MEDS: IPRATROPIUM BROMIDE 14 GM INHALER (or 12.9 GM) IH SCH ×6 (01:41→21:08)
--- NOTE | 2020-05-02 02:07 | NUR ---
rn dialysis. no changes. will continue to monitor
[2020-05-02] MEDS: PROPOFOL 100 ML IV PRN ×2 (02:10→08:45)
[2020-05-02 04:42] LABS: BASOPHILS # (AUTO) 0.1 /CMM (0.0-0.2); BASOPHILS % (AUTO) 0.7 % (0.0-2.0); HEMATOCRIT 39 % (39-51); HEMOGLOBIN 12.6 g/dL (13.5-17.5); LYMPHOCYTES # (AUTO) 0.4 /CMM (0.8-4.8); MEAN CORPUSCULAR HGB CONC 33 g/dl (31.0-36.0); MEAN CORPUSCULAR VOLUME 100 fL (80-96); MONOCYTES # (AUTO) 0.7 /CMM (0.1-1.30); MONOCYTES % (AUTO) 4.8 % (2.0-12.0); NEUTROPHILS # (AUTO) 12.8 /CMM (1.8-8.9); NEUTROPHILS % (AUTO) 91.5 % (43.0-81.0); PLATELET COUNT (AUTO) 197 /CMM (150-450)
[2020-05-02 05:26] LABS: CALCIUM, SERUM 8.5 mg/dL (8.5-10.1); CREATININE 1.1 mg/dL (0.6-1.3); MAGNESIUM 2.3 mg/dL (1.8-2.4); PHOSPHORUS 3.6 mg/dL (2.5-4.9)
--- NOTE | 2020-05-02 07:02 | NUR ---
agriculture sales account manager. remaining same vent setting tolerated well. sat 98%no changes.
--- NOTE | 2020-05-02 07:50 | NUR ---
RN NOTES RECEIVED PATIENT RESTING ON THE BED. ORALLY INTUBATED 01/22, TV-550, FIO-240, PEEP-5. SEDATED WITH DIPRIVAN 50MCG/HR. SAT 98%. NO ACUTE DISTRESS NOTED. MOLD YARD SUPERVISOR SHOWING NSR. IV RT AND LT HAND 18G. BILATERAL SOFT WRIST RESTRAINT CHECKED AND RELEASED Q 2HR, HNG TUNR INTACT, ADMINISTERED SCHEDULED MEDICATION, PLACEMENT ,AND RESIDUAL CHECKED. NO INJURY OR REDNESS NOTED HOB ELEVATED, FC PATENT DRAINING LIGHT GREENISH OUTPUT. ASSIST TURN AND REPOSTION Q 2 HR. WILL CONTINUE TO MONITOR.
--- NOTE | 2020-05-02 08:00 | NUR ---
RN NOTES PER ELECTRONIC SYSTEMS SECURITY ASSESSMENT Dr SOTO;EG TO ORDER TITRATE PROPOFOL FOR STOP SEDATION. TITRATED PROPOFOL 45 MCG AT THIS TIME. PATIENT STILL SEDATED.
[2020-05-02] MEDS ORDERED: DC PROPOFOL WHEN EXTUBATED XX PRN (09:00)
[2020-05-02] MEDS: PROSTAT (PYXIS) 30 ML UDC PO SCH ×3 (09:00→17:01)
[2020-05-02] MEDS: ASPIRIN 81 MG TAB.CHEW PO SCH (09:27)
[2020-05-02] MEDS: FINASTERIDE (5 MG) 5 MG TABLET PO SCH (09:27)
[2020-05-02] MEDS: DOCUSATE SODIUM 250 MG CAPSULE PO SCH (09:27)
[2020-05-02] MEDS: CHOLECALCIFEROL 1,000 UNIT TABLET (VIT D3) PO SCH (09:27)
[2020-05-02] MEDS: methylPREDNISolone SOD SUCC 40 MG/ML VIAL IV SCH ×2 (09:27→16:59)
[2020-05-02] MEDS: ENOXAPARIN SODIUM 40 MG/0.4 ML DISP.SYRIN SQ SCH (09:28)
[2020-05-02] MEDS: PANTOPRAZOLE 40 MG TABLET.DR PO SCH (09:28)
--- NOTE | 2020-05-02 09:30 | NUR ---
RN NOTES PATIENT FULLY AWAKE, EXPLAINED TO BREATH, AND CALM, AND FOLLOW DIRECTION, ABG TAKEN PER RT, WILL MONITORING FOR RESULT.
[2020-05-02] MEDS: PERPHENAZINE 2 MG TABLET PO SCH ×2 (10:07→16:59)
[2020-05-02 10:11] LABS: ABG BASE EXCESS -1.9 mmol/L; ABG OXYGEN SATURATION 96.4 % (92.0-98.5); ABG PCO2 40.1 mmHg (35.0-45.0); ABG PH 7.378 (7.350-7.450); ABG PO2 86.7 mmHg (75.0-100.0); AaDO2 152.4 mmHg; COHb 0.5 % (0.5-1.5); MetHb 0.3 % (0.0-1.5); O2Hb 95.6 % (94.0-97.0); SITE, ABG Right Radial
--- NOTE | 2020-05-02 10:12 | NUR ---
RN NOTES ABG RESULT IS NORMAL, PATIENT ABLE TO BREATH BY SELF, FOLLOW COMONF, V/S BP 127/100, P-91, R-22, O2-96. PER Dr HOU WILL EXTUBATE PATIENT.
--- NOTE | 2020-05-02 10:20 | NUR ---
RN NOTES PATIENT GET EXTUBATED AT THIS TIME, AWAKE, NO ACUTE RESPIRATORY DISTRESS, SUCTIONED, NS O2-5L NC AT THIS TIME, PATIENT ORIENTED SURROUNDING, A/O X3, FOLLOW DIRECTION. PATIENT STATE "i AM IN THE EARTH, AND LAUGHING". V/S STABLE . WILL MONITORING.
--- NOTE | 2020-05-02 10:20 | NUR ---
RT PER DR SALAZAR ORDERS PATIENT WEANED AND EXTUBATED JOSE RAFAEL WELL. PATIENT PLACED ON 5L N/C MAINTAINING SPO2 ABOVE 92%. RN AWARE Addendum: 05/02/20 at 1030 by YURI SHERMAN RT Amended: Links added.
--- NOTE | 2020-05-02 11:30 | NUR ---
RN NOTES PATIENT REMOVED NG TUBE AT THIS TIME, HOSPITALIST AWARE OF, KEEP NPO , KEEP HOB ELEVATED, PATIENT ON NC 5L, V/S STABLE, WILL MONITORING.
[2020-05-02] MEDS: CEFTRIAXONE 1 G in IV D5W 50 ML IV SCH (13:00)
--- NOTE | 2020-05-02 15:21 | NUR ---
RN NOTES D/C DECKER CATHETER PER HOSPITALIST TANIYA NEAL, TO ORDER TAKEN AND CARRIED OUT.
--- NOTE | 2020-05-02 17:03 | NUR ---
RN NOTES NURSE SWALLOW EVALUATION DONE PATIENT ABLE TO SWALLOW WELL, NO ASPIRATION PRECAUTION, ADMINISTERED PO MEDICATION.
--- NOTE | 2020-05-02 17:27 | NUR ---
RN NOTES PER SENIOR BIOSTATISTICIAN Dr AMEYA OLIVER PATIENT EAT CLEAR LIQUID DIET. ORDER TAKEN AND CARRIED OUT.
--- NOTE | 2020-05-02 18:56 | NUR ---
RN NOTES PATIENT HAS NO ACUTE RESPIRATORY DISTRESS, ON O2-5LNS. TOLERATED DINNER 100 CLEAR LIQUID DIET. SELF TURN AND REPOSTION SELF IN THE BED. PATIENT AFTER REMOVAL OF DECKER NOT URINATED YET. CALL LIGHT WITHIN TO REACH. ENDORSED ONCOMING NURSE FOLLOW PLAN OF CARE. INFUSING TKO 10 ML/HR ON RIGHT WRIST, INTACT.
--- NOTE | 2020-05-02 19:39 | NUR ---
RECEIVED PATIENT IN NO ACUTE DISTRESS IN BED. PATIENT IS A/O X 3 AND ABLE TO MAKE NEEDS KNOWN. PATIENT IS ON O2 VIA NASAL CANNULA AT 4LPM AND TOLERATING WELL. PATIENT NOT C/O ANY SOB, DIFFICULTY BREATHING OR PAIN AT THIS TIME. PATIENT ABLE TO SIT AT SIDE OF BED WITH NO HELP FROM STAFF. PATIENT IS S/P EXTUBATION AND DECKER. ACCORDING TO DAY RN DECKER REMOVED AT 1500 AND PATIENT HAS NOT URINATED YET. WILL CONTINUE TO MONITOR FOR URINATION AND IF NOT WILL PERFORM BLADDER SCAN. PATIENT HAS RIGHT FOREARM AND LEFT WRIST IV THAT ARE CLEAN DRY INTACT AND PATIENT WITH SALINE LOCK. BED IN LOW LOCK POSITION WITH RIALS UP X 2. CALL LIGHT WITHIN REACH AND ALL SAFETY MEASURES ENSURED AND CARRIED OUT. WILL CONTINUE TO MONITOR.
[2020-05-02] MEDS: OLANZAPINE 10 MG TABLET PO SCH (21:05)
[2020-05-02] MEDS: TAMSULOSIN 0.4 MG CAP.SR.24H PO SCH (21:05)
[2020-05-02] MEDS: ATORVASTATIN 40 MG TABLET PO SCH (21:05)
[2020-05-02] MEDS: AZITHROMYCIN 500 MG in IV D5W 250 ML IV SCH (21:07)
[2020-05-03] VITALS (20 sets, daily range): BP systolic 88–153; BP diastolic 51–99
[2020-05-03] MEDS: IPRATROPIUM BROMIDE 14 GM INHALER (or 12.9 GM) IH SCH ×5 (01:35→20:24)
[2020-05-03] MEDS: ALBUTEROL SULFATE 8 GM HFA.AER.AD IH SCH ×4 (01:36→20:23)
[2020-05-03 05:18] LABS: BASOPHILS % (AUTO) 0.2 % (0.0-2.0); HEMATOCRIT 40 % (39-51); HEMOGLOBIN 12.9 g/dL (13.5-17.5); LYMPHOCYTES # (AUTO) 0.5 /CMM (0.8-4.8); LYMPHOCYTES % (AUTO) 3.2 % (20.0-44.0); MEAN CORPUSCULAR HGB CONC 32 g/dl (31.0-36.0); MEAN CORPUSCULAR VOLUME 101 fL (80-96); NEUTROPHILS # (AUTO) 14.9 /CMM (1.8-8.9); NEUTROPHILS % (AUTO) 90.6 % (43.0-81.0); PLATELET COUNT (AUTO) 188 /CMM (150-450); RED BLOOD CELL COUNT(AUTO) 3.97 MIL/uL (4.5-6.0); WHITE BLOOD COUNT (AUTO) 16.5 K/uL (4.3-11.0)
[2020-05-03 05:25] LABS: CALCIUM, SERUM 8.5 mg/dL (8.5-10.1); CREATININE 1.2 mg/dL (0.6-1.3); POTASSIUM 4.5 mmol/L (3.5-5.1)
--- NOTE | 2020-05-03 07:17 | NUR ---
PATIENT REMAINS IN NO ACUTE DISTRESS IN BED. PATIENT DID NOT HAVE ANY SIGNIFICANT CHANGE IN CONDITION DURING SHIFT. ALL NEEDS MET, ALL ORDERS CARRIED OUT. WILL ENDORSE CARE TO AM RN FOR CONTINUITY OF CARE.
[2020-05-03] MEDS: CHOLECALCIFEROL 1,000 UNIT TABLET (VIT D3) PO SCH (08:00)
[2020-05-03] MEDS: FINASTERIDE (5 MG) 5 MG TABLET PO SCH (08:00)
[2020-05-03] MEDS: PERPHENAZINE 2 MG TABLET PO SCH ×2 (08:00→16:57)
[2020-05-03] MEDS: PANTOPRAZOLE 40 MG TABLET.DR PO SCH (08:00)
[2020-05-03] MEDS: DOCUSATE SODIUM 250 MG CAPSULE PO SCH (08:00)
[2020-05-03] MEDS: methylPREDNISolone SOD SUCC 40 MG/ML VIAL IV SCH ×2 (08:00→16:57)
[2020-05-03] MEDS: ASPIRIN 81 MG TAB.CHEW PO SCH (08:02)
[2020-05-03] MEDS: ENOXAPARIN SODIUM 40 MG/0.4 ML DISP.SYRIN SQ SCH (08:03)
[2020-05-03] MEDS: PROSTAT (PYXIS) 30 ML UDC PO SCH ×2 (09:00→16:58)
[2020-05-03] MEDS: CEFTRIAXONE 1 G in IV D5W 50 ML IV SCH (12:11)
--- NOTE | 2020-05-03 19:27 | NUR ---
ICU -> 323-1 transferred per ACLS protocol. Vital signs stable. Receiving RN Andrea at bedside. Patient remains awake, oriented x1-2, able to verbalize needs, on 2L O2 via nasal cannula, SPO2 >95%, on room air SPO2 87-92%. tele SR HR 70s, BP WNL. Speech eval completed today, able to feed self, ate 100% meals today, no coughing noted. Voided x1, 1 BM formed, brown. No swelling noted. Skin remains intact. Patient able to reposition self. Dangles feet, ambulates without difficulty/standby assist. IV sites x2 patent, flushed, no s/s infiltration. Transferred with belongings and medications
--- NOTE | 2020-05-03 19:30 | NUR ---
TELE/RN OPENING NOTES RECEIVED PATIENT FROM ICU TRANSFER, NO INJURIES SUSTAINED. PATIENT IS ALERT AND ORIENTED X 2-3. PATIENT IN NO SIGNS OF DISTRESS. BREATHING IS EVEN AND UNLABORED. NO SIGNS OF SOB OR RESPIRATORY DISTRESS NOTED. PATIENT TELE READING SR 68. PATIENT HAS RIGHT FA #18G AND LEFT WRIST #18G INTACT. SAFETY MEASURES ARE IN PLACE, BED IS LOCKED AND PLACED IN THE LOW POSITION, BED ALARM ON. CALL LIGHT IS WITHIN REACH. WILL CONTINUE TO MONITOR THROUGH OUT SHIFT.
[2020-05-03] MEDS: ATORVASTATIN 40 MG TABLET PO SCH (21:01)
[2020-05-03] MEDS: AZITHROMYCIN 500 MG in IV D5W 250 ML IV SCH (21:01)
[2020-05-03] MEDS: OLANZAPINE 10 MG TABLET PO SCH (21:02)
[2020-05-03] MEDS: TAMSULOSIN 0.4 MG CAP.SR.24H PO SCH (21:02)
[2020-05-04] VITALS: BP 145/87
[2020-05-04 04:00] VITALS: BP 131/76
--- NOTE | 2020-05-04 06:40 | NUR ---
TELE/RN CLOSING NOTES PATIENT SLEEPING IN BED. PATIENT IS ALERT AND ORIENTED X 2-3. PATIENT IN NO SIGNS OF DISTRESS. BREATHING IS EVEN AND UNLABORED. NO SIGNS OF SOB OR RESPIRATORY DISTRESS NOTED. PATIENT TELE READING SR 70'S. PATIENT HAS RIGHT FA #18G AND LEFT WRIST #18G INTACT. ALL NEEDS HAVE BEEN MET DURING SHIFT. SAFETY MEASURES ARE IN PLACE, BED IS LOCKED AND PLACED IN THE LOW POSITION, BED ALARM ON. CALL LIGHT IS WITHIN REACH. WILL ENDORSE CARE TO DAY SHIFT NURSE.
[2020-05-04 08:00] VITALS: BP 132/79
[2020-05-04] MEDS: ENOXAPARIN SODIUM 40 MG/0.4 ML DISP.SYRIN SQ SCH (08:50)
[2020-05-04] MEDS: ASPIRIN 81 MG TAB.CHEW PO SCH (08:50)
[2020-05-04] MEDS: methylPREDNISolone SOD SUCC 40 MG/ML VIAL IV SCH (08:51)
[2020-05-04] MEDS: FINASTERIDE (5 MG) 5 MG TABLET PO SCH (08:51)
[2020-05-04] MEDS: PANTOPRAZOLE 40 MG TABLET.DR PO SCH (08:51)
[2020-05-04] MEDS: DOCUSATE SODIUM 250 MG CAPSULE PO SCH (08:51)
[2020-05-04] MEDS: PROSTAT (PYXIS) 30 ML UDC PO SCH (08:51)
[2020-05-04] MEDS: CHOLECALCIFEROL 1,000 UNIT TABLET (VIT D3) PO SCH (08:51)
[2020-05-04] MEDS: PERPHENAZINE 2 MG TABLET PO SCH ×2 (09:00→16:45)
[2020-05-04] MEDS: CEFTRIAXONE 1 G in IV D5W 50 ML IV SCH (12:51)
--- NOTE | 2020-05-04 13:00 | NUR ---
RECEIVED REPORT FROM HIREN VARGAS, AT THIS TIME. WILL CONTINUE TO MONITOR AND CONTINUE WITH PLAN OF CARE
[2020-05-04] MEDS ORDERED: methylPREDNISolone SOD SUCC 40 MG/ML VIAL IV SCH (16:00)
[2020-05-04 16:10] VITALS: BP 154/92
[2020-05-04] MEDS ORDERED: PROSOURCE / PROSTAT (PYXIS) 30 ML UDC GT SCH (17:00)
[2020-05-04] MEDS ORDERED: PROSOURCE / PROSTAT (PYXIS) 30 ML UDC PO SCH (17:30)
--- NOTE | 2020-05-04 17:45 | NUR ---
BRIDGE LEVERMANCITY CONSTABLE NOTES PT DISCHARGE TO [facility] AT THIS TIME. PT IS MEDICALLY STABLE AND CLEARED FOR DISCHARGE. REPORT CALLED IN TO HIREN CARR @[facility]. PT KEPT CLEAN AND DRY. ALL CARE, NEEDS, TREATMENT AND MEDICATIONS ADMINISTERED ANTICIPATED PER ORDER. DISCHARGE INSTRUCTIONS PROVIDED AND PT VERBALIZED UNDERSTANDING. ALL BELONGINGS ACCOUNTED FOR, SIGNED BY PT, RETURN TO PT AND COPY OF BELONGING LIST FILED IN CHART. ID BAND REMOVED. IV ACCESS REMOVED, PRESSURE APPLIED, SECURED WITH GAUZE AND TAPE. NO SIGN OF BLEEDING OR INFILTRATION NOTED. PT LEFT THE UNIT AT THIS TIME IN STABLE CONDITION ACCOMPANIED BY TWO AMBULANCE PERSONNELS. ANDRADE, CHARGE NURSE AND DR CHACON AWARE.
== END 2020-05-04 19:00 | DRG 871 ==
LOC: ER 15:20 → ICU 17:15 → MED 05-03 19:27 → TELE 05-03 23:16 → MED 05-04 12:52
PROVIDERS: ADMIT Registered Nurse; ATTEND Internal Medicine
PROC: 5A1945Z Respiratory Ventilation, 24-96 Consecutive Hours (ICD-10-PCS; principal; 2020-04-30)
PROC: 0BH18EZ Insertion of Endotracheal Airway into Trachea, Via Natural or Artificial Opening Endoscopic (ICD-10-PCS; 2020-04-30)
DX: A41.9 Sepsis, unspecified organism (principal); J96.01 Acute respiratory failure with hypoxia; G93.41 Metabolic encephalopathy; I21.A1 Myocardial infarction type 2; E43 Unspecified severe protein-calorie malnutrition; N17.0 Acute kidney failure with tubular necrosis; J96.02 Acute respiratory failure with hypercapnia; I50.32 Chronic diastolic (congestive) heart failure; E87.0 Hyperosmolality and hypernatremia; J44.1 Chronic obstructive pulmonary disease with (acute) exacerbation; I11.0 Hypertensive heart disease with heart failure; E66.9 Obesity, unspecified; E78.5 Hyperlipidemia, unspecified; F03.90 Unspecified dementia, unspecified severity, without behavioral disturbance, psychotic disturbance, mood disturbance, and anxiety; N40.0 Benign prostatic hyperplasia without lower urinary tract symptoms; I48.91 Unspecified atrial fibrillation; D63.8 Anemia in other chronic diseases classified elsewhere; E88.09 Other disorders of plasma-protein metabolism, not elsewhere classified; Z86.73 Personal history of transient ischemic attack (TIA), and cerebral infarction without residual deficits; F20.9 Schizophrenia, unspecified; Z68.28 Body mass index [BMI] 28.0-28.9, adult; F09 Unspecified mental disorder due to known physiological condition; E83.39 Other disorders of phosphorus metabolism; E02 Subclinical iodine-deficiency hypothyroidism; Z79.82 Long term (current) use of aspirin; R65.20 Severe sepsis without septic shock
CPT/HCPCS: 31720; 36415; 36600; 71045-TC; 80048-TC; 80053-TC; 80061-TC; 80076-TC; 82550-TC; 82728-TC; 82803-TC; 83605-TC; 83615-TC; 83735-TC; 83880; 84100-TC; 84439-TC; 84443-TC; 84484-TC; 85025-TC; 85378-TC; 86140-TC; 87040-TC; 87081-TC; 92526; 92611-TC; 93307-TC; 94002-TC; 94003-TC; 94640; 94799-TC; A7526; A9563; C9803; G0378; J0456; J0696; J1650; J2704; J2920; J2930; J3475; J3490; J7030; J7050; J7060; P9047; Q0175; U0003